=== PATIENT | female | born 1935 | race Caucasian/White ===

== ENCOUNTER 2021-05-02 13:05 | Emergency (ER) | payer MEDICARE, BC, SELFPAY ==
--- NOTE | ~2021-05-02 | CT_ITS ---
EXAMINATION: CT cervical spine wo con DATE: 05/02/2021 13:49 INDICATION: Fall with loss of consciousness and left shoulder pain TECHNIQUE: Computed tomography (CT) of the cervical spine was performed without intravenous contrast. Automated exposure control and iterative reconstruction technique were employed. The dose-length pro duct was 513.36 mGy-cm. COMPARISON: None FINDINGS: 2 mm retrolisthesis C4 on C5 and 2 mm anterolisthesis C7 on T1 and T1 on T2. Vertebral body heights a re normal. No fracture. Severe disc height loss at T1-T2. Moderate disc height loss at C4-C5 through C7-T1 as well as at T2-T3 and mild disc height loss at C2-C3 and C3-C4. Small disc bulges and small p osterior disc osteophyte complexes throughout the cervical spinal resulting in minimal to mild centra l canal stenosis. There is also mild to moderate multilevel bilateral neural foraminal stenosis throu ghout the cervical spine most prominent in the mid cervical spine resulting from multilevel moderate to severe facet and uncovertebral osteoarthritis. Multinodular goiter. Mild atherosclerotic calcific a cyst at the bilateral carotid bulbs. Cervical soft tissues are otherwise unremarkable. Mosaic atten uation likely related to expiratory phase of imaging with small regions of air trapping related to sm all airway disease. IMPRESSION: 1. Moderate to severe cervical spondylosis with no acute osseous abnormality. 2. Multinodular goiter. Reviewed, dictated and finalized at location A.
--- NOTE | ~2021-05-02 | CT_ITS ---
EXAMINATION: CT brain wo con DATE: 05/02/2021 13:49 INDICATION: Headache post fall with loss of consciousness. TECHNIQUE: Computed tomography (CT) of the head was performed without intravenous contrast. Sagittal and coronal reconstructions were performed. The mA was adjusted according to patient size. Iterative reconstruction technique was employed. The dose-length product was 605.33 mGy-cm. COMPARISON: None FINDINGS: No fracture. No acute intracranial hemorrhage, acute infarction or abnormal extra axial fluid collect ion. There is moderate scattered white matter hypoattenuation consistent with chronic small vessel is chemic disease. Symmetric prominence of the sulci and ventricles consistent with moderate age-appropr iate diffuse cerebral volume loss. No mass/mass effect. Changes of bilateral intraocular lens replace ment. The orbits, paranasal sinuses and mastoid air cells are normal. Intracranial calcified cerebral atherosclerosis is noted. IMPRESSION: 1. No fracture or acute intracranial process. 2. Age-related changes including moderate diffuse volume loss and moderate scattered white matter hyp oattenuation consistent with chronic small vessel ischemic disease. Reviewed, dictated and finalized at location A. IMPRESSION: 1. No fracture or acute intracranial process. 2. Age-related changes including moderate diffuse volume loss and moderate scat tered white matter hypoattenuation consistent with chronic small vessel ischemi c disease.
--- NOTE | ~2021-05-02 | XR_ITS ---
EXAMINATION: XR humerus LT DATE: 05/02/2021 13:36 INDICATION: Proximal left humeral pain and limited range of motion post fall TECHNIQUE: Internal and externally rotated views of the left humerus were obtained. COMPARISON: None. FINDINGS: Comminuted intra-articular fracture at the proximal left humerus. There is 6 mm lateral displacement and 25 degrees posterior angulation across a fracture plane arising at the medial cortex at the metad iaphyseal region extending cephalad likely along the anatomic neck there are couple additional fractu re planes extending across the base of the greater tuberosity and cephalad to the apex of the humeral head. The lateral fragment of the humeral head along the main distal fragment both migrated proximal ly resulting in approximately 7 mm step-off at the articular surface with respect to the medial humer al head fragment which remains in normal alignment with respect to the glenoid. Mild to moderate left acromioclavicular osteoarthritis. Left elbow joint appears unremarkable. Prominent soft tissue swell ing about the shoulder and proximal upper arm. Visualized portions of the superolateral aspect of the left lung appears clear. No pneumothorax. IMPRESSION: 1. Comminuted 1 part fracture of the proximal left humerus with 7 mm step-off at the fracture line at the apex of the humeral head. Reviewed, dictated and finalized at location A. IMPRESSION: 1. Comminuted 1 part fracture of the proximal left humerus with 7 mm step-off a t the fracture line at the apex of the humeral head.
[2021-05-02 13:09] VITALS: BP 140/83; PULSE 89; RESP 14; TEMP 36.7; O2SAT 95
--- NOTE | 2021-05-02 13:26 | ED.FALL ---
HPI - Fall General Chief Complaint: Fall Stated Complaint: fall, arm fx Time Seen by Provider: 05/02/21 13:16 History of Present Illness HPI Narrative: Patient presents for fall. She does not member what happened I think she rolled out she thinks she lost consciousness. She reports she initially had a headache that has now resolved. She was seen by her nursing staff had x-rays and was found to have a fracture in the left humerus and was referred to the ER for evaluation. Patient reports overall she is feeling well she reports she has no pain unless he tried to move her her pain is located around her left shoulder. She denies any headache, change in vision, focal numbness or weakness. Related Data Allergies Allergy/AdvReac Type Severity Reaction Status Date / Time No Known Allergies Allergy Verified 05/02/21 13:14 Review of Systems Review of Systems: CONSTITUTIONAL: Denies fever, chills, or sweats. EYES: Denies visual changes, redness, or discharge. ENT: Denies rhinorrhea, congestion, sore throat, or otalgia. CARDIOVASCULAR: Denies chest pain, palpitations, or edema. RESPIRATORY: Denies cough or dyspnea. GASTROINTESTINAL: Denies abdominal pain, nausea, vomiting, or diarrhea. GENITOURINARY: Denies dysuria or hematuria. SKIN: Denies rash or itching. MUSCULOSKELETAL: Denies back pain, joint pain, or myalgia. NEUROLOGIC: Denies headache, numbness, dizziness, or weakness. PSYCHIATRIC: Denies anxiety or depression. All systems reviewed & are unremarkable except as noted in HPI and below Exam Narrative: GENERAL: Well-appearing, well-nourished, and in no acute distress. HEAD: Normocephalic, atraumatic. EYES: PERRLA and EOMI. ENT: Nares clear, no rhinorrhea or epistaxis. Mucous membranes moist. NECK: Supple. No masses. No JVD ABDOMEN: Soft, nontender, nondistended, normal active bowel sounds. EXTREMITIES: Tenderness palpation on the proximal humerus there is limited range of motion due to pain at the shoulder. Strength sensation and cap refill remain intact distal aspect of the left upper extremity. No open wounds on the left upper extremity SKIN: Warm, dry, no rash. NEURO: No focal deficits. Alert and oriented x3. PSYCH: Normal mood and affect. Course Reevaluation(s) Reevaluation #1: Patient is resting comfortably her pain continues to be well controlled without any medications. Was imaging and outpatient plan reviewed with patient. Patient is comfortable with the outpatient plan. Patient to contact orthopedics tomorrow morning to set up a follow-up appointment. Date: 05/02/21 Time: 14:48 Vital Signs Vital signs: Vital Signs Temperature 36.7 C 05/02/21 13:09 Pulse Rate 89 05/02/21 13:09 Respiratory Rate 14 05/02/21 13:09 Blood Pressure 140/83 05/02/21 13:09 Pulse Oximetry 95 05/02/21 13:09 Temperature 36.7 C 05/02/21 13:09 Pulse Rate 100 05/02/21 18:12 Respiratory Rate 18 05/02/21 18:12 Blood Pressure 165/86 H 05/02/21 18:12 Pulse Oximetry 96 05/02/21 18:12 MDM - Fall MDM Narrative Medical decision making narrative: H&P as above, vss, pt looks clinically well, exam with tenderness on the left upper extremity distal extremity remains neurovascularly intact, labs with UA concerning for infection otherwise clinically unremarkable, img with isolated fracture, EKG also shows A. fib additional labs/img considered, symptomatic relief available as needed, on reevaluation pt continues to looks clinically well. Suspect mechanical event with isolated fracture, dns intracranial hemorrhage, cord compromise severe sepsis. Patient was placed in a shoulder immobilizer and given contact information to follow-up with orthopedics. Patient has not carried a prior diagnosis of atrial fibrillation however given patient is a fall risk we will not initiate anticoagulation here patient given contact information for cardiology and is to follow-up as an outpatient for further management. Lab Data Result diagra
--- NOTE | 2021-05-02 13:30 | ECG_ITS ---
Measurements Intervals [place] Rate: 80 P: [place]: 0 QRS: 56 QRSD: 106 T: 26 QT: 342 QTc: 395 Interpretive Statements ATRIAL FIBRILLATION VENTRICULAR PREMATURE COMPLEX DELAYED PRECORDIAL R/S TRANSITION MINIMAL Q WAVES- INFERIOR LEADS BASELINE ARTIFACT- II, III, AVF ABNORMAL ECG Electronically Signed On 05-02-2021 20:01:51 CDT by Foster Peralta D.O.
[2021-05-02 14:25] LABS: Basophils Percent Auto 0.6 % (0.2-1.2); Eosinophils Absolute Auto 0.2 K/mm3 (0-0.3); Eosinophils Percent Auto 3.3 % (0-4.4); Hematocrit 38.1 % (37.0-47.0); Hemoglobin 12.6 g/dL (12.0-15.0); Immature Granulocyte Absolute 0.01 K/mm3 (0.00-0.031); Immature Granulocyte Percent A 0.1 % (0-0.5); Lymphocytes Absolute Auto 1.75 K/mm3 (0.9-3.2); Lymphocytes Percent Auto 24.4 % (18.3-44.2); Mean Corpuscular HGB Conc 33.1 g/dl (32-36); Mean Corpuscular Hemoglobin 29.2 pg (26-34); Mean Corpuscular Volume 88.2 fl (80-100); Monocytes Absolute Auto 0.9 K/mm3 (0.1-0.6); Neutrophils Absolute Auto 4.3 K/mm3 (1.3-6.7); Neutrophils Percent Auto 59.6 % (45.5-73.1); Platelet Count Result 147 k/mm3 (150-375); Red Blood Count 4.32 M/mm3 (4.2-5.4); Red Cell Distribution Width 15.5 % (11.5-14.5); White Blood Count 7.2 K/mm3 (4.5-10.0)
[2021-05-02 14:34] LABS: Prothrombin Time 13.4 Seconds (11.1-14.7)
[2021-05-02 14:35] LABS: Alanine Aminotransferase 17 U/L (4-35); Albumin Level 3.2 g/dL (3.5-5.1); Alkaline Phosphatase 63 U/L (38-126); Anion Gap 3 mmol/L (8-16); Aspartate Amino Transferase 26 U/L (14-36); Bilirubin,Total 0.7 mg/dL (0.2-1.3); Blood Urea Nitrogen 14 mg/dL (7-17); Calcium 8.9 mg/dL (8.4-10.2); Carbon Dioxide 31 mmol/L (22-30); Chloride 97 mmol/L (98-107); Estimated Glomerular Filt Rate > 60; Glucose 122 mg/dL (65-110); Partial Thromboplastin Time 31.1 SECONDS (22.3-36.8); Sodium 131 mmol/L (137-145)
--- NOTE | 2021-05-02 15:19 | PC.NURSE ---
Spoke with nurse at [facility]. They dont have a history of afib on file for her. EDP notified.
[2021-05-02 17:11] LABS: Add Urine Microscopic? YES; Appearance Urine Cloudy (Clear); Bilirubin Urine Negative (Negative); Blood Urine Negative (Negative); Color Urine Amber (Yellow); Glucose Urine UA Negative (Negative); Ketones Urine Negative (Negative); Leukocyte Esterase Ur Negative LEU/UL (Negative); Mucus Urine Few /lpf; Nitrate Urine Negative (Negative); Protein Urine 1+ mg/dL (Negative); RBC Urine >75 /hpf (0-2); Specific Grav Ur 1.024 (1.001-1.035); Squamous Epithelial Cell Urine Many /hpf (Few); Urobilinogen Urine Negative mg/dL (<2.0)
[2021-05-02 18:12] VITALS: BP 165/86; PULSE 100; RESP 18; O2SAT 96
--- NOTE | 2021-05-02 18:19 | PC.NURSE ---
made contact with [facility] to [facility] [place]. [facility] [address] and will be taking pt alessandra
== END 2021-05-02 18:50 ==
PROVIDERS: Emergency Provider Emergency Medicine
DX: S42.292A Other displaced fracture of upper end of left humerus, initial encounter for closed fracture (principal); S42.252A Displaced fracture of greater tuberosity of left humerus, initial encounter for closed fracture; N39.0 Urinary tract infection, site not specified; I48.91 Unspecified atrial fibrillation; I49.3 Ventricular premature depolarization; R94.31 Abnormal electrocardiogram [ECG] [EKG]; M47.812 Spondylosis without myelopathy or radiculopathy, cervical region; E04.2 Nontoxic multinodular goiter; W06.XXXA Fall from bed, initial encounter
CPT/HCPCS: 36415; 51701; 70450; 72125; 73060; 80053; 81001; 84443; 85025; 85610; 85730; 87086; 87088; 93005; 99284; A4565

== ENCOUNTER 2022-08-18 23:32 | Emergency (ER) | payer MEDICARE, BC, SELFPAY ==
--- NOTE | ~2022-08-18 | XR_ITS ---
EXAMINATION: XR chest 1V portable DATE: 08/19/2022 00:07 INDICATION: Hypoxia. TECHNIQUE: A single frontal view of the chest was obtained. COMPARISON: Left shoulder radiographs 06/17/2021 FINDINGS: There is a diffuse interstitial pattern, consistent with mild pulmonary edema. No pleural e ffusion or pneumothorax. Cardiomegaly is noted. There is an old fracture of proximal left humerus wit h malunion. IMPRESSION: 1. Mild pulmonary edema. 2. Cardiomegaly. Reviewed, dictated and finalized at location A. L SORTER
--- NOTE | ~2022-08-18 | CT_ITS ---
CT head without contrast Indication: Altered mental status COMPARISON: 05/02/2021 Technique: Serial scans were obtained through the brain without the administration of contrast. Dose reduction technique was used on this scan by utilizing automated exposure control and iterative recon struction technique. The dose-length product (DLP) was 681.00 mGy-cm. Findings: There is no evidence of intracranial hemorrhage, mass lesion, or acute infarct. The ventri cles and subarachnoid spaces are dilated, consistent with mild atrophy. Low attenuation regions are seen within the periventricular white matter bilaterally, likely representing changes from chronic mi crovascular ischemic disease. There is no evidence of edema, mass effect or midline shift. The visu alized paranasal sinuses and mastoid air cells are clear. Impression: No intracranial hemorrhage, mass, or acute infarct. Atrophy and chronic white matter changes, as above. Reviewed, dictated and finalized at location [] [facility] Impression: No intracranial hemorrhage, mass, or acute infarct. Atrophy and chronic white matter changes, as above.
[2022-08-18 23:52] VITALS: BP 152/97; PULSE 80; RESP 18; TEMP 36.6; O2SAT 97
--- NOTE | 2022-08-18 23:54 | ED.SOB ---
HPI - SOB/Dyspnea General Chief Complaint: Altered Mental Status Stated Complaint: altered loc Time Seen by Provider: 08/18/22 23:40 Source: EMS Mode of arrival: EMS Limitations: dementia History of Present Illness HPI Narrative: Patient is a 86-year-old female with a history of hypertension, hyperlipidemia, iron deficiency anemia, dementia, peripheral vascular disease, presenting to the emergency department for evaluation of tremor-like activity and low oxygen saturations at facility. Patient transported via EMS from [facility] as noted to have oxygen saturation of 74% on room air by staff. Patient was placed on 8 L oxygen via nasal cannula with improvement and EMS was contacted. Patient was transported to our facility alert and oriented to person, place, not to time. Staff felt that she was mentating at baseline and had improvement with the nasal cannula oxygenation. Per EMS, she was stable in route and not hypoxic. At the time of my assessment, patient is alert and oriented to person and place, not to time. History is limited secondary to her dementia which is a known diagnosis for her. All of history was obtained from direct conversation with EMS and per chart review. Related Data Home Medications Medication Instructions Recorded Confirmed acetaminophen 500 mg tablet 500 mg PO Q6H PRN 05/07/21 06/17/21 alendronate 70 mg tablet 70 mg PO WEEKLY 05/07/21 06/17/21 aspirin 81 mg chewable tablet 81 mg PO DAILY 05/07/21 06/17/21 atorvastatin 20 mg tablet 20 mg PO DAILY 05/07/21 06/17/21 calcium 650 mg-vitamin D3 12.5 tablet PO .once a day 05/07/21 06/17/21 mcg-vitamin K 40 mcg chewable tablet (Viactiv) celecoxib 200 mg capsule (Celebrex) 200 mg PO DAILY 05/07/21 06/17/21 cephalexin 500 mg capsule 500 mg PO Q12H 05/07/21 06/17/21 cholecalciferol (vitamin D3) 10 10 mcg PO DAILY 05/07/21 06/17/21 mcg (400 unit) tablet citalopram 10 mg tablet 10 mg PO DAILY 05/07/21 06/17/21 docusate sodium 100 mg tablet 100 mg PO DAILY 05/07/21 06/17/21 ertapenem 1 gram solution for 1 g IM DAILY 05/07/21 06/17/21 injection ertapenem 1 gram solution for 1 g IM Q24H 05/07/21 06/17/21 injection furosemide 20 mg tablet 20 mg PO ONCE 05/07/21 06/17/21 gabapentin 100 mg capsule 100 mg PO DAILY 05/07/21 06/17/21 gabapentin 600 mg tablet 600 mg PO DAILY 05/07/21 06/17/21 ipratropium bromide 0.02 % 2.5 ml inhalation Q6H PRN 05/07/21 06/17/21 solution for inhalation losartan 100 mg tablet 100 mg PO DAILY 05/07/21 06/17/21 magnesium 250 mg tablet 250 mg PO DAILY 05/07/21 06/17/21 magnesium hydroxide 400 mg/5 mL 5 ml PO DAILY PRN 05/07/21 06/17/21 oral suspension melatonin 5 mg capsule mg PO .at bedtime PRN 05/07/21 06/17/21 multivitamin 1 tablet PO DAILY 05/07/21 06/17/21 polysaccharide iron complex 150 mg 150 mg PO BID 05/07/21 06/17/21 iron capsule ropinirole 1 mg tablet 1 mg PO TID 05/07/21 06/17/21 sodium chloride 1 gram tablet 1,000 mg PO DAILY 05/07/21 06/17/21 tizanidine 2 mg capsule 2 mg PO TID PRN 05/07/21 06/17/21 calcium 650 mg-vitamin D3 12.5 tablet PO PRN 06/04/21 06/17/21 mcg-vitamin K 40 mcg chewable tablet (Viactiv) cholecalciferol (vitamin D3) 10 10 mcg PO DAILY 06/04/21 06/17/21 mcg (400 unit) capsule lidocaine 5 % topical patch 1 patch topical DAILY 06/04/21 06/17/21 magnesium hydroxide 400 mg/5 mL 5 ml PO DAILY PRN 06/04/21 06/17/21 oral suspension (Milk of Magnesia) Allergies Allergy/AdvReac Type Severity Reaction Status Date / Time No Known Allergies Allergy Verified 06/17/21 10:33 Review of Systems Review of Systems: ROS unobtainable: Yes unobtainable due to mental status PMFSH Past Medical History Medical History (Updated 08/19/22 @ 04:32 by Gypsy Hunt MD) Anxiety disorder, unspecified Bilateral primary osteoarthritis of knee Constipation, unspecified Edema, unspecified High blood pressure Hyperlipidemia, unspecified Hypo-osmolality and hyponatremia Insomnia, unspecified Iron de
[2022-08-19 00:13] LABS: Alveolar/Arterial O2 Gradient 31.5 mmHg; Base Excess ABG 2.4 mEq/l (+/-2.0); Device ROOM AIR; Fractional Inspired Oxygen 21 %; HCO3 ABG 27.1 mEq/l (22.0-26.0); Modified Allen's Test Pass; Oxygen Content ABG 21.5 %vol (16.0-22.0); Oxygen Saturation ABG 94.1 % (95.0-100.0); Oxyhemoglobin 92.3 % THb (90.0-100.0); PCO2 ABG 41.8 mmHg (35.0-45.0); PO2 ABG 68.2 mmHg (80.0-100.0); PO2 FiO2 Ratio Arterial Blood 3.25 %; Site Drawn RIGHT RADIAL; Total Hemoglobin 16.6 g/dL (12.0-18.0); pH ABG 7.429 (7.350-7.450)
[2022-08-19 00:18] LABS: Basophils Percent Auto 0.3 % (0.2-1.2); Eosinophils Percent Auto 0.1 % (0-4.4); Hematocrit 45.7 % (37.0-47.0); Hemoglobin 15.5 g/dL (12.0-15.0); Immature Granulocyte Absolute 0.04 K/mm3 (0.00-0.031); Immature Granulocyte Percent A 0.4 % (0-0.5); Lymphocytes Absolute Auto 1.82 K/mm3 (0.9-3.2); Lymphocytes Percent Auto 18.3 % (18.3-44.2); Mean Corpuscular HGB Conc 33.9 g/dl (32-36); Mean Corpuscular Hemoglobin 31.4 pg (26-34); Mean Corpuscular Volume 92.5 fl (80-100); Mean Platelet Volume 9.2 fl (7.4-10.4); Monocytes Absolute Auto 0.6 K/mm3 (0.1-0.6); Monocytes Percent Auto 6.4 % (2.6-8.5); Neutrophils Absolute Auto 7.4 K/mm3 (1.3-6.7); Neutrophils Percent Auto 74.5 % (45.5-73.1); Platelet Count Result 211 k/mm3 (150-375); Red Blood Count 4.94 M/mm3 (4.2-5.4); Red Cell Distribution Width 14.2 % (11.5-14.5)
[2022-08-19 00:27] LABS: Ammonia < 9 umol/L (9-30); Ethanol < 10 mg/dL (<10)
[2022-08-19 00:30] LABS: Lactic Acid Reflex 1.3 mmol/L (0.7-2.0)
[2022-08-19 00:31] LABS: Alanine Aminotransferase 18 U/L (6-35); Albumin Level 4.3 g/dL (3.5-5.1); Alkaline Phosphatase 76 U/L (38-126); Anion Gap 6 mmol/L (8-16); Aspartate Amino Transferase 31 U/L (14-36); Bilirubin,Total 0.7 mg/dL (0.2-1.3); Blood Urea Nitrogen 16 mg/dL (7-17); Calcium 9.2 mg/dL (8.4-10.2); Carbon Dioxide 31 mmol/L (22-30); Chloride 91 mmol/L (98-107); Estimated Glomerular Filt Rate 47; Glucose 129 mg/dL (65-110); Potassium 3.6 mmol/L (3.4-5.0); Sodium 128 mmol/L (137-145)
[2022-08-19 00:32] LABS: Partial Thromboplastin Time 29.9 SECONDS (22.3-36.8)
[2022-08-19 00:43] LABS: Troponin I 0.017 ng/mL (0.000-0.034)
[2022-08-19 01:48] LABS: Influenza A QL RT-PCR Negative (Negative); Influenza B QL RT-PCR Negative (Negative); RSV RNA, RT-PCR Negative (Negative); SARS-CoV-2 RNA PCR Negative
--- NOTE | 2022-08-19 02:02 | ECG_ITS ---
Measurements Intervals [place] Rate: 91 P: [place]: 0 QRS: 58 QRSD: 110 T: -39 QT: 364 QTc: 448 Interpretive Statements BASELINE ARTIFACT/REDUCED ECG QUALITY ATRIAL FIBRILLATION POOR R-WAVE PROGRESSION COMPARED TO ECG 05/02/2021 15:03:48 NO SIGNIFICANT CHANGES Electronically Signed On 08-19-2022 10:18:59 [employer]ATING [employer]ILITY TECHNOLOGIST by Víctor Reno M.D.
[2022-08-19 02:51] LABS: Add Urine Microscopic? YES; Appearance Urine Clear (Clear); Bilirubin Urine Negative (Negative); Blood Urine Trace-Intact (Negative); Color Urine Yellow (Yellow); Glucose Urine UA Negative (Negative); Ketones Urine Trace mg/dL (Negative); Leukocyte Esterase Ur Trace LEU/UL (Negative); Nitrate Urine Positive (Negative); Protein Urine 2+ mg/dL (Negative); Specific Grav Ur 1.025 (1.001-1.035); Urobilinogen Urine 0.2 mg/dL (<2.0)
[2022-08-19 03:07] LABS: Bacteria Urine 4+ /hpf; Mucus Urine Rare /lpf; Squamous Epithelial Cell Urine Rare /hpf (Few); WBC Urine 31-50 /hpf
[2022-08-19 05:29] LABS: Troponin I 0.022 ng/mL (0.000-0.034)
[2022-08-19] MEDS: SODIUM CHLORIDE 0.9% IV 1,000 ML 999 ML IV CONT (05:38)
[2022-08-19 06:58] LABS: Troponin I 0.021 ng/mL (0.000-0.034)
[2022-08-19 08:05] VITALS: BP 161/95; PULSE 67; RESP 16; O2SAT 98
--- NOTE | 2022-08-19 08:05 | PC.NURSE ---
[facility] Accepted transfer to [facility] ETA 10a Trip # [id number]
[2022-08-19 10:38] VITALS: BP 182/89; PULSE 91; RESP 16; O2SAT 95
== END 2022-08-19 10:51 ==
PROVIDERS: Emergency Provider Emergency Medicine; PCP Family Medicine
DX: N39.0 Urinary tract infection, site not specified (principal); Z20.822 Contact with and (suspected) exposure to COVID-19; I10 Essential (primary) hypertension; E78.5 Hyperlipidemia, unspecified; F03.90 Unspecified dementia, unspecified severity, without behavioral disturbance, psychotic disturbance, mood disturbance, and anxiety; D50.9 Iron deficiency anemia, unspecified; I73.9 Peripheral vascular disease, unspecified; M17.0 Bilateral primary osteoarthritis of knee; G25.81 Restless legs syndrome; F41.9 Anxiety disorder, unspecified; Z79.82 Long term (current) use of aspirin; Z87.891 Personal history of nicotine dependence; I48.91 Unspecified atrial fibrillation; R94.31 Abnormal electrocardiogram [ECG] [EKG]; I51.7 Cardiomegaly; J81.1 Chronic pulmonary edema; Z79.899 Other long term (current) drug therapy
CPT/HCPCS: 36415; 36600; 70450; 71045; 80053; 80307; 81001; 82140; 82805; 83605; 84443; 84484; 85025; 85610; 85730; 87077; 87086; 87186; 87637; 93005; 96361; 96365; 99284; J0696; J7030

== ENCOUNTER 2023-03-19 21:32 | Emergency (ER) | payer MEDICARE, BC, SELFPAY ==
[2023-03-19 21:32] VITALS: BP 127/81; PULSE 97; RESP 18; TEMP 36.9; O2SAT 96
--- NOTE | 2023-03-19 22:17 | ED.GENADULT ---
HPI - General Adult General Chief complaint: Unspecified Stated complaint: needs ogden Time Seen by Provider: 03/19/23 21:54 History of Present Illness HPI narrative: There is 87-year-old female who presents to Emergency Department with a chief complaint of possible urinary retention. The patient is was a resident of a local nursing facility and the nurse there felt as though her bladder was full and she had not urinated in several hours patient reports she has no complaints currently Related Data Home Medications Medication Instructions Recorded Confirmed acetaminophen 500 mg tablet 500 mg PO Q6H PRN 05/07/21 03/17/23 alendronate 70 mg tablet 70 mg PO WEEKLY 05/07/21 03/17/23 aspirin 81 mg chewable tablet 81 mg PO DAILY 05/07/21 03/17/23 atorvastatin 20 mg tablet 20 mg PO DAILY 05/07/21 03/17/23 calcium 650 mg-vitamin D3 12.5 tablet PO .once a day 05/07/21 03/17/23 mcg-vitamin K 40 mcg chewable tablet (Viactiv) celecoxib 200 mg capsule (Celebrex) 200 mg PO DAILY 05/07/21 03/17/23 cholecalciferol (vitamin D3) 10 10 mcg PO DAILY 05/07/21 03/17/23 mcg (400 unit) tablet citalopram 10 mg tablet 10 mg PO DAILY 05/07/21 03/17/23 docusate sodium 100 mg tablet 100 mg PO DAILY 05/07/21 03/17/23 furosemide 20 mg tablet 20 mg PO ONCE 05/07/21 03/17/23 gabapentin 100 mg capsule 100 mg PO DAILY 05/07/21 03/17/23 gabapentin 600 mg tablet 600 mg PO DAILY 05/07/21 03/17/23 losartan 100 mg tablet 100 mg PO DAILY 05/07/21 03/17/23 magnesium 250 mg tablet 250 mg PO DAILY 05/07/21 03/17/23 melatonin 5 mg capsule mg PO .at bedtime PRN 05/07/21 03/17/23 multivitamin 1 tablet PO DAILY 05/07/21 03/17/23 polysaccharide iron complex 150 mg 150 mg PO BID 05/07/21 03/17/23 iron capsule ropinirole 1 mg tablet 1 mg PO TID 05/07/21 03/17/23 sodium chloride 1 gram tablet 1,000 mg PO DAILY 05/07/21 03/17/23 lidocaine 5 % topical patch 1 patch topical DAILY 06/04/21 03/17/23 magnesium hydroxide 400 mg/5 mL 5 ml PO DAILY PRN 06/04/21 03/17/23 oral suspension (Milk of Magnesia) cilostazol 100 mg tablet 100 mg PO BID 11/11/22 03/17/23 divalproex 125 mg tablet,delayed 125 mg PO BID 11/11/22 03/17/23 release (Depakote) Allergies Allergy/AdvReac Type Severity Reaction Status Date / Time No Known Allergies Allergy Verified 06/17/21 10:33 Review of Systems Review of Systems: A 10 system review of systems was completed on the patient and is negative except for what is stated in the HPI. Nursing and ancillary documentation was reviewed. [facility] Past Medical History Medical History Anxiety disorder, unspecified Bilateral primary osteoarthritis of knee Constipation, unspecified Edema, unspecified High blood pressure Hyperlipidemia, unspecified Hypo-osmolality and hyponatremia Insomnia, unspecified Iron deficiency anemia, unspecified Pain in left shoulder Proximal humeral fracture Restless legs syndrome Unspecified fracture of upper end of left humerus, sequela Weakness Family History Family History Other History of cancer Social History Social History Smoking status: Former smoker Tobacco type: cigarettes Alcohol intake: current Alcohol use details: occasionally Substance use: never Living arrangements: alf Additional living arrangements comments: [facility] Occupation/Education: retired Gender identity (if verbalized by the patient): Female Exam Narrative: GENERAL: Well-appearing, well-nourished, and in no acute distress. HEAD: Normocephalic, atraumatic. EYES: PERRLA and EOMI. ENT: Nares clear, no rhinorrhea or epistaxis. Mucous membranes moist. NECK: Supple. CHEST: Clear to auscultation. No respiratory distress. HEART: Regular rate and rhythm. No murmur heard. Normal peripheral pulses. ABDOMEN: Soft
--- NOTE | 2023-03-19 23:10 | PC.NURSE ---
Pt voided in bed, pt repositioned and bed linens changed. Bladder scan after void was 112
[2023-03-19 23:59] VITALS: BP 168/103; PULSE 86; RESP 16; O2SAT 96
[2023-03-20 00:08] VITALS: BP 158/96
--- NOTE | 2023-03-20 00:51 | PC.NURSE ---
EMS arrived to transport pt, bedside report given. Pt alert and upright per baseline during transport out of ED.
== END 2023-03-20 00:51 ==
PROVIDERS: Emergency Provider Emergency Medicine; PCP Family Medicine
DX: Z03.89 Encounter for observation for other suspected diseases and conditions ruled out (principal); I10 Essential (primary) hypertension; E78.5 Hyperlipidemia, unspecified; D50.9 Iron deficiency anemia, unspecified; M17.0 Bilateral primary osteoarthritis of knee; G25.81 Restless legs syndrome; F41.9 Anxiety disorder, unspecified; Z87.891 Personal history of nicotine dependence; Z79.82 Long term (current) use of aspirin
CPT/HCPCS: 99283

== ENCOUNTER 2023-03-29 11:41 | Inpatient (IN) | payer MEDICARE, BC, SELFPAY ==
[2023-03-29] VITALS (14 sets, daily range): BP systolic 101–152; BP diastolic 62–103; PULSE 72–94; RESP 12–24; TEMP 36.3–36.8; O2SAT 94–100; BMI 30.1
--- NOTE | ~2023-03-29 | XR_ITS ---
XR chest 1V portable 03/29/2023 14:26 Indication: Altered mental status Procedure: AP portable chest Comparison: 08/19/2022 Findings: Cardiomegaly. No focal air space disease, pulmonary edema, pleural effusion or suspected pn eumothorax. There is an old healed left humeral neck fracture. There are degenerative changes of the right shoulder. Impression: 1: No acute cardiopulmonary disease. Reviewed, dictated and finalized at location A. Impression: 1: No acute cardiopulmonary disease.
--- NOTE | ~2023-03-29 | CT_ITS ---
EXAMINATION: CT brain wo con DATE: 03/29/2023 14:20 INDICATION: Altered mental status TECHNIQUE: Computed tomography (CT) of the head was performed without intravenous contrast. The dose- length product was 605.33 mGy-cm. Automated exposure control and iterative reconstruction technique w ere employed. COMPARISON: CT dated 08/19/2022 FINDINGS: Generalized brain parenchymal volume loss. There are scattered moderate periventricular and subcortical white matter changes, most likely related to small vessel ischemic disease (microangiopa thy). No ventriculomegaly or midline shift. Basilar cisterns are patent. There is intracranial athero sclerosis. No acute intracranial hemorrhage, infarction, mass or mass effect. Paranasal sinuses and m astoids are pneumatized. No depressed skull fractures. IMPRESSION: 1. No acute intracranial abnormality. Reviewed, dictated and finalized at location A.
--- NOTE | 2023-03-29 11:50 | ECG_ITS ---
Measurements Intervals [place] Rate: 70 P: [place]: 0 QRS: 28 QRSD: 106 T: 4 QT: 360 QTc: 390 Interpretive Statements ATRIAL FIBRILLATION CONSIDER INFERIOR INFARCT, AGE INDETERMINATE BASELINE ARTIFACT- I, II, AVR, AVL, V3 ABNORMAL ECG COMPARED TO ECG 08/19/2022 02:02:32 NO SIGNIFICANT CHANGES Electronically Signed On 03-29-2023 12:04:03 CDT by Foster Peralta D.O.
[2023-03-29 12:06] LABS: Basophils Percent Auto 0.6 % (0.2-1.2); Eosinophils Absolute Auto 0.4 K/mm3 (0-0.3); Eosinophils Percent Auto 6.1 % (0-4.4); Hemoglobin 13.3 g/dL (12.0-15.0); Immature Granulocyte Absolute 0.01 K/mm3 (0.00-0.031); Immature Granulocyte Percent A 0.2 % (0-0.5); Lymphocytes Absolute Auto 2.08 K/mm3 (0.9-3.2); Lymphocytes Percent Auto 31.7 % (18.3-44.2); Mean Corpuscular HGB Conc 33.3 g/dl (32-36); Mean Corpuscular Hemoglobin 31.7 pg (26-34); Mean Corpuscular Volume 95.5 fl (80-100); Mean Platelet Volume 9.4 fl (7.4-10.4); Monocytes Absolute Auto 0.7 K/mm3 (0.1-0.6); Monocytes Percent Auto 10.4 % (2.6-8.5); Neutrophils Absolute Auto 3.4 K/mm3 (1.3-6.7); Platelet Count Result 164 k/mm3 (150-375); Red Blood Count 4.19 M/mm3 (4.2-5.4); Red Cell Distribution Width 13.6 % (11.5-14.5); White Blood Count 6.6 K/mm3 (4.5-10.0)
[2023-03-29 12:16] LABS: Alanine Aminotransferase 21 U/L (6-35); Albumin Level 3.6 g/dL (3.5-5.1); Alkaline Phosphatase 63 U/L (38-126); Anion Gap 5 mmol/L (8-16); Aspartate Amino Transferase 27 U/L (14-36); Bilirubin,Total 0.6 mg/dL (0.2-1.3); Blood Urea Nitrogen 16 mg/dL (7-17); Calcium 9.1 mg/dL (8.4-10.2); Carbon Dioxide 30 mmol/L (22-30); Chloride 92 mmol/L (98-107); Estimated CRCL calculation 61 ml/min; Estimated Glomerular Filt Rate > 60; Glucose 93 mg/dL (65-110); Potassium 4.4 mmol/L (3.4-5.0); Sodium 127 mmol/L (137-145)
[2023-03-29 12:22] LABS: Appearance Urine Cloudy (Clear); Bacteria Urine 4+ /hpf; Bilirubin Urine Negative (Negative); Blood Urine Negative (Negative); Color Urine Yellow (Yellow); Glucose Urine UA Negative (Negative); Ketones Urine Negative (Negative); Leukocyte Esterase Ur 1+ LEU/UL (Negative); Nitrate Urine Positive (Negative); Non Pathogenic Casts 0-2; Protein Urine Negative (Negative); Specific Grav Ur 1.014 (1.001-1.035); Squamous Epithelial Cell Urine None seen /hpf (Few)
[2023-03-29 12:28] LABS: Add Urine Microscopic? YES
[2023-03-29 12:49] LABS: INR 0.8; Prothrombin Time 11.8 Seconds (11.1-14.7)
[2023-03-29 12:50] LABS: Partial Thromboplastin Time 29.5 SECONDS (22.3-36.8)
--- NOTE | 2023-03-29 13:59 | ED.AMS ---
HPI - Altered Mental Status General Chief Complaint: Altered Mental Status Stated Complaint: UTI Time Seen by Provider: 03/29/23 13:13 History of Present Illness HPI narrative: HPI limited by patient's altered mental status This is an 87-year-old female, with past medical history of hyperlipidemia and hypertension, [facility] for [facility] status. The patient is reportedly A&O x2-3 at baseline and was 1-2 today. The patient is not sure why she is here and complains of chronic right knee and hip pain. Related Data Home Medications Medication Instructions Recorded Confirmed acetaminophen 500 mg tablet 500 mg PO Q6H PRN pain 05/07/21 03/29/23 alendronate 70 mg tablet 70 mg PO WEEKLY 05/07/21 03/29/23 aspirin 81 mg chewable tablet 81 mg PO DAILY 05/07/21 03/29/23 atorvastatin 20 mg tablet 20 mg PO DAILY 05/07/21 03/29/23 celecoxib 200 mg capsule (Celebrex) 200 mg PO DAILY 05/07/21 03/29/23 cholecalciferol (vitamin D3) 10 10 mcg PO DAILY 05/07/21 03/29/23 mcg (400 unit) tablet citalopram 10 mg tablet 10 mg PO DAILY 05/07/21 03/29/23 docusate sodium 100 mg tablet 100 mg PO DAILY 05/07/21 03/29/23 losartan 100 mg tablet 100 mg PO DAILY 05/07/21 03/29/23 magnesium 250 mg tablet 250 mg PO DAILY 05/07/21 03/29/23 melatonin 5 mg capsule 5 mg PO HS 05/07/21 03/29/23 multivitamin 1 tablet PO DAILY 05/07/21 03/29/23 ropinirole 1 mg tablet 1 mg PO TID 05/07/21 03/29/23 sodium chloride 1 gram tablet 1,000 mg PO DAILY 05/07/21 03/29/23 lidocaine 5 % topical patch 1 patch topical DAILY 06/04/21 03/29/23 magnesium hydroxide 400 mg/5 mL 5 ml PO DAILY 06/04/21 03/29/23 oral suspension (Milk of Magnesia) cilostazol 100 mg tablet 100 mg PO BID 11/11/22 03/29/23 divalproex 125 mg tablet,delayed 125 mg PO BID 11/11/22 03/29/23 release (Depakote) baclofen 10 mg tablet 10 mg PO TID 03/29/23 03/29/23 calcium 650 mg-vitamin D3 12.5 1 tablet PO DAILY 03/29/23 03/29/23 mcg-vitamin K 40 mcg chewable tablet (Viactiv) ferrous sulfate 325 mg (65 mg 40 mg PO DAILY 03/29/23 03/29/23 iron) tablet,delayed release gabapentin 300 mg capsule 300 mg PO BID 03/29/23 03/29/23 lactulose 20 gram/30 mL oral 20 g PO BID 03/29/23 03/29/23 solution nystatin-triamcinolone 100,000 100,000 applic topical DAILY 03/29/23 03/29/23 unit/gram-0.1 % topical ointment sennosides 8.6 mg tablet (senna) 8.6 mg PO BID 03/29/23 03/29/23 spironolactone 50 mg tablet 50 mg PO QAM 03/29/23 03/29/23 tamsulosin 0.4 mg capsule 0.4 mg PO DAILY 03/29/23 03/29/23 Allergies Allergy/AdvReac Type Severity Reaction Status Date / Time No Known Allergies Allergy Verified 06/17/21 10:33 Review of Systems Review of Systems: CONSTITUTIONAL: Denies fever, chills, or sweats. CARDIOVASCULAR: Denies chest pain, palpitations, or edema. RESPIRATORY: Denies cough or dyspnea. GASTROINTESTINAL: Denies abdominal pain, nausea, vomiting, or diarrhea. GENITOURINARY: Denies dysuria or hematuria. SKIN: Denies rash or itching. MUSCULOSKELETAL: Chronic right hip and right knee pain denies back pain, or myalgia. NEUROLOGIC: Denies headache, numbness, dizziness, or weakness. PSYCHIATRIC: Denies anxiety or depression. [facility] Past Medical History Medical History Anxiety disorder, unspecified Bilateral primary osteoarthritis of knee Constipation, unspecified Edema, unspecified High blood pressure Hyperlipidemia, unspecified Hypo-osmolality and hyponatremia Insomnia, unspecified Iron deficiency anemia, unspecified Pain in left shoulder Proximal humeral fracture Restless legs syndrome Unspecified fracture of upper end of left humerus, sequela Weakness Family History Family History (Updated 03/29/23 @ 17:34 by Xenia Olivarez RN) Father History of cancer Social History Social History Smoking packs per day: 1.5 Smoking cigarettes per day: 30.0
[2023-03-29 15:08] LABS: Ethanol < 10 mg/dL (<10)
--- NOTE | 2023-03-29 15:20 | PC.NURSE ---
Family phone call received, updated on pt status.
[2023-03-29 16:56] LABS: Amphetamine Screen Urine Negative (Negative); Barbiturate Screen Urine Negative (Negative); Benzodiazepines Screen Urine Negative (Negative); Cannabinoid Screen Urine Negative (Negative); Cocaine Screen Urine Negative (Negative); Methadone Screen Urine Negative (Negative); Opiate Screen Urine Negative (Negative); Phencyclidine Screen Urine Negative (Negative)
--- NOTE | 2023-03-29 17:10 | ADMGEN ---
This patient, Mariah Michel, was admitted to 3 Med Surg Room 304-02. Patient/family oriented to hospital policies and general routines including ID bracelet, bed and alarms, visiting hours, pain management, procedures, bathroom and other care routines, personal items, smoking policy, room service/diet, and visiting hours. Information on how to activate the Rapid Response Team has been discussed. Patient/Family are encouraged to report perceived risks to care and to ask questions if they do not understand what they are told or what they should do.
[2023-03-29 17:21] LABS: Acetaminophen < 10 ug/mL (10-30); Salicylate < 1.0 mg/dL (2-20)
[2023-03-29] MEDS: ACETAMINOPHEN 325 MG TABLET 650 MG PO (21:11)
[2023-03-30 06:00] VITALS: BP 129/84; PULSE 85; RESP 16; TEMP 36; O2SAT 96
[2023-03-30 06:42] LABS: Basophils Absolute Auto 0.1 K/mm3 (0.0-0.1); Basophils Percent Auto 0.7 % (0.2-1.2); Eosinophils Absolute Auto 0.7 K/mm3 (0-0.3); Eosinophils Percent Auto 9.3 % (0-4.4); Hematocrit 41.4 % (37.0-47.0); Immature Granulocyte Absolute 0.02 K/mm3 (0.00-0.031); Immature Granulocyte Percent A 0.3 % (0-0.5); Lymphocytes Absolute Auto 1.93 K/mm3 (0.9-3.2); Lymphocytes Percent Auto 27.7 % (18.3-44.2); Mean Corpuscular HGB Conc 33.8 g/dl (32-36); Mean Corpuscular Volume 94.7 fl (80-100); Mean Platelet Volume 9.8 fl (7.4-10.4); Monocytes Absolute Auto 0.8 K/mm3 (0.1-0.6); Monocytes Percent Auto 11.2 % (2.6-8.5); Neutrophils Absolute Auto 3.6 K/mm3 (1.3-6.7); Neutrophils Percent Auto 50.8 % (45.5-73.1); Platelet Count Result 168 k/mm3 (150-375); Red Blood Count 4.37 M/mm3 (4.2-5.4); Red Cell Distribution Width 13.6 % (11.5-14.5)
[2023-03-30 06:57] LABS: Anion Gap 4 mmol/L (8-16); Blood Urea Nitrogen 12 mg/dL (7-17); Calcium 9.2 mg/dL (8.4-10.2); Carbon Dioxide 31 mmol/L (22-30); Chloride 93 mmol/L (98-107); Estimated CRCL calculation 65 ml/min; Estimated Glomerular Filt Rate > 60; Glucose 87 mg/dL (65-110); Potassium 4.8 mmol/L (3.4-5.0); Sodium 128 mmol/L (137-145)
[2023-03-30 09:54] VITALS: O2SAT 97
--- NOTE | 2023-03-30 11:59 | PM.IMHP ---
H&P: HPI History of Present Illness Date/Time: 03/30/23 11:59 Chief Complaint: HPI limited by patient's altered mental status This is an 87-year-old female, with past medical history of hyperlipidemia and hypertension, brought in by EMS from her long term for altered mental status.? The patient is reportedly A&O x2-3 at baseline and was 1-2 today.? The patient is not sure why she is here and complains of chronic right knee and hip pain. [facility] Past Medical History Medical History Anxiety disorder, unspecified Bilateral primary osteoarthritis of knee Constipation, unspecified Edema, unspecified High blood pressure Hyperlipidemia, unspecified Hypo-osmolality and hyponatremia Insomnia, unspecified Iron deficiency anemia, unspecified Pain in left shoulder Proximal humeral fracture Restless legs syndrome Unspecified fracture of upper end of left humerus, sequela Weakness Family History Family History Father History of cancer Social History Social History Smoking packs per day: 1.5 Smoking cigarettes per day: 30.0 Years smoked: 18 Smoking pack-years: 27.00 Smoking status: Former smoker Tobacco type: cigarettes Alcohol intake: former Drinks per week: 1 Alcohol use details: occasionally Substance use: never Lack of Transportation: No Lack of Food: Never True Current Housing: I Have Housing Concerned About Future Housing: No Difficulty Paying Gas/Electric Bills: No Difficulty Paying for Meds: No Currently Unemployed: No Education: High School Diploma/GED Difficulty w/ Childcare or Family Care: No Living arrangements: long term Additional living arrangements comments: [facility] Occupation/Education: retired Gender identity (if verbalized by the patient): Female Spiritual care concerns: No Meds Home Medications and Allergies Home Medications Medication Instructions Recorded Confirmed Type acetaminophen 500 mg tablet 500 mg PO Q6H PRN pain 05/07/21 03/29/23 History alendronate 70 mg tablet 70 mg PO WEEKLY 05/07/21 03/29/23 History aspirin 81 mg chewable tablet 81 mg PO DAILY 05/07/21 03/29/23 History atorvastatin 20 mg tablet 20 mg PO DAILY 05/07/21 03/29/23 History celecoxib 200 mg capsule (Celebrex) 200 mg PO DAILY 05/07/21 03/29/23 History cholecalciferol (vitamin D3) 10 10 mcg PO DAILY 05/07/21 03/29/23 History mcg (400 unit) tablet citalopram 10 mg tablet 10 mg PO DAILY 05/07/21 03/29/23 History docusate sodium 100 mg tablet 100 mg PO DAILY 05/07/21 03/29/23 History losartan 100 mg tablet 100 mg PO DAILY 05/07/21 03/29/23 History magnesium 250 mg tablet 250 mg PO DAILY 05/07/21 03/29/23 History melatonin 5 mg capsule 5 mg PO HS 05/07/21 03/29/23 History multivitamin 1 tablet PO DAILY 05/07/21 03/29/23 History ropinirole 1 mg tablet 1 mg PO TID 05/07/21 03/29/23 History sodium chloride 1 gram tablet 1,000 mg PO DAILY 05/07/21 03/29/23 History lidocaine 5 % topical patch 1 patch topical DAILY 06/04/21 03/29/23 History magnesium hydroxide 400 mg/5 mL 5 ml PO DAILY 06/04/21 03/29/23 History oral suspension (Milk of Magnesia) cilostazol 100 mg tablet 100 mg PO BID 11/11/22 03/29/23 History divalproex 125 mg tablet,delayed 125 mg PO BID 11/11/22 03/29/23 History release (Depakote) baclofen 10 mg tablet 10 mg PO TID 03/29/23 03/29/23 History calcium 650 mg-vitamin D3 12.5 1 tablet PO DAILY 03/29/23 03/29/23 History mcg-vitamin K 40 mcg chewable tablet (Viactiv) ferrous sulfate 325 mg (65 mg 40 mg PO DAILY 03/29/23 03/29/23 History iron) tablet,delayed release gabapentin 300 mg capsule 300 mg PO BID 03/29/23 03/29/23 History lactulose 20 gram/30 mL oral 20 g PO BID 03/29/23 03/29/23 History solution nystatin-triamcinolone 100,000 100,000 applic topical DAILY 03/29/23 03/29/23 H
[2023-03-30] MEDS: SPIRONOLACTONE 50 MG TABLET PO (13:31)
[2023-03-30] MEDS: rOPINIRole HCL 1 MG TABLET PO ×2 (13:31→17:31)
[2023-03-30] MEDS: DIVALPROEX SODIUM DR 125 MG TABEC PO ×2 (13:31→20:33)
[2023-03-30] MEDS: MAGNESIUM 13.5 MG TABLET (250 MG MAG GLUCONATE) PO (13:31)
[2023-03-30] MEDS: TAMSULOSIN HCL 0.4 MG CAPSULE PO (13:32)
[2023-03-30] MEDS: GABAPENTIN 300 MG CAPSULE PO ×2 (13:32→20:34)
[2023-03-30] MEDS: BACLOFEN 10 MG TABLET PO ×2 (13:32→17:32)
[2023-03-30] MEDS: LIDOCAINE 5% PATCH 1 PATCH TOPICAL (13:32)
[2023-03-30] MEDS: MULTIVITAMINS THERAPEUTIC TAB (*BKC) 1 TABLET PO (13:32)
[2023-03-30 14:00] VITALS: BP 151/80; PULSE 81; RESP 16; TEMP 36.2; O2SAT 98
[2023-03-30] MEDS: cilostazoL 100 MG TABLET PO (17:30)
[2023-03-30] MEDS: LACTULOSE 20 GM/30 ML UDC PO (17:31)
[2023-03-30] MEDS: SENNOSIDES 8.6 MG TABLET PO (17:32)
[2023-03-30] MEDS: MELATONIN 5 MG TABLET PO (20:34)
[2023-03-30 21:46] VITALS: O2SAT 97
[2023-03-30 22:00] VITALS: BP 135/72; PULSE 76; RESP 16; TEMP 36; O2SAT 96
[2023-03-31 06:00] VITALS: BP 139/85; PULSE 73; RESP 16; TEMP 36; O2SAT 95
[2023-03-31] MEDS: rOPINIRole HCL 1 MG TABLET PO ×3 (09:02→17:49)
[2023-03-31] MEDS: MULTIVITAMINS THERAPEUTIC TAB (*BKC) 1 TABLET PO (09:02)
[2023-03-31] MEDS: CELECOXIB 200 MG CAPSULE PO (09:02)
[2023-03-31] MEDS: GABAPENTIN 300 MG CAPSULE PO ×2 (09:02→20:31)
[2023-03-31] MEDS: TAMSULOSIN HCL 0.4 MG CAPSULE PO (09:02)
[2023-03-31] MEDS: LACTULOSE 20 GM/30 ML UDC PO ×2 (09:02→17:49)
[2023-03-31] MEDS: SODIUM CHLORIDE 1 GM TABLET PO (09:02)
[2023-03-31] MEDS: CHOLECALCIFEROL 400 UNITS TABLET (VIT D) PO (09:02)
[2023-03-31] MEDS: DIVALPROEX SODIUM DR 125 MG TABEC PO ×2 (09:02→20:31)
[2023-03-31] MEDS: LOSARTAN POTASSIUM 100 MG TABLET PO (09:02)
[2023-03-31] MEDS: CITALOPRAM HYDROBROMIDE 10 MG TABLET PO (09:02)
[2023-03-31] MEDS: cilostazoL 100 MG TABLET PO ×2 (09:03→17:49)
[2023-03-31] MEDS: FERROUS SULFATE 325 MG TABLET DR PO (09:03)
[2023-03-31] MEDS: SPIRONOLACTONE 50 MG TABLET PO (09:03)
[2023-03-31] MEDS: ATORVASTATIN 20 MG TABLET PO (09:03)
[2023-03-31] MEDS: DOCUSATE SODIUM 100 MG CAPSULE PO (09:08)
[2023-03-31] MEDS: ASPIRIN 81 MG CHEWABLE TABLET PO (09:08)
[2023-03-31] MEDS: MAGNESIUM HYDROXIDE SUSP 30 ML UDC 5 ML PO (09:08)
[2023-03-31] MEDS: LIDOCAINE 5% PATCH 1 PATCH TOPICAL (09:08)
[2023-03-31] MEDS: BACLOFEN 10 MG TABLET PO ×3 (09:09→17:49)
[2023-03-31] MEDS: SENNOSIDES 8.6 MG TABLET PO ×2 (09:52→17:49)
--- NOTE | 2023-03-31 11:26 | PM.IMPN ---
Progress Note: A&P Assessment and Plan (1) Altered mental status: Qualifiers: Altered mental status type: delirium Qualified Code(s): R41.0 - Disorientation, unspecified Code(s): R41.82 - Altered mental status, unspecified Status: Acute Assessment and Plan: Appears to be at baseline. (2) Urinary tract infection, site not specified: Qualifiers: Hematuria presence: with hematuria Urinary tract infection type: acute cystitis Qualified Code(s): N30.01 - Acute cystitis with hematuria Code(s): N39.0 - Urinary tract infection, site not specified Status: Acute Assessment and Plan: Antibiotics. Subjective Date/time seen: 03/31/23 11:26 Interval history: No complaints Exam Narrative: General: alert and oriented Psych: appropriate mood nad affect Eyes: PERRLA Neck: Trachea midline, no new lesions Skin: no changes Lungs: CTA Cardiac: Normal S1,S2, no MGR ABD: soft, nd, nt, nbs Ext: no new lesions, no cce Vasc: Pulses intact Objective Data Vital Signs Vital Signs: Vital Signs - 24 hr 03/30/23 14:00 03/30/23 22:00 03/30/23 21:46 Temperature 97.1 F L 96.8 F L Pulse Rate 81 76 Respiratory Rate 16 16 Blood Pressure 151/80 H 135/72 Pulse Oximetry 98 96 97 Oxygen Delivery Room Air 03/31/23 06:00 Temperature 96.8 F L Pulse Rate 73 Respiratory Rate 16 Blood Pressure 139/85 Pulse Oximetry 95 Oxygen Delivery Intake/Output Intake/Output: Intake & Output 03/28/23 03/29/23 03/30/23 03/31/23 23:59 23:59 23:59 23:59 Intake Total 290 1790 354 Output Total 150 Balance 140 1790 354 Meds/Results Medications: Active Medications Generic Name Dose Route Start Last Admin Trade Name Freq PRN Reason Stop Dose Admin Acetaminophen 650 mg 03/29/23 15:04 03/29/23 21:11 Acetaminophen 325 Mg Tablet PO 650 mg Q4H PRN Administration Mild Pain (1-3) or Fever Alendronate Sodium 70 mg 04/06/23 09:00 Alendronate Sodium 70 Mg Tablet PO WEEKLY CHRISTEL Aspirin 81 mg 03/31/23 09:00 03/31/23 09:08 Aspirin 81 Mg Chewable Tablet PO 81 mg DAILY CHRISTEL Administration Atorvastatin Calcium 20 mg 03/31/23 09:00 03/31/23 09:03 Atorvastatin 20 Mg Tablet PO 20 mg DAILY CHRISTEL Administration Baclofen 10 mg 03/30/23 13:00 03/31/23 09:09 Baclofen 10 Mg Tablet PO 10 mg TID CHRISTEL Administration Celecoxib 200 mg 03/31/23 09:00 03/31/23 09:02 Celecoxib 200 Mg Capsule PO 200 mg DAILY CHRISTEL Administration Cilostazol 100 mg 03/30/23 17:00 03/31/23 09:03 Cilostazol 100 Mg Tablet PO 100 mg BID CHRISTEL Administration Citalopram Hydrobromide 10 mg 03/31/23 09:00 03/31/23 09:02 Citalopram Hydrobromide 10 Mg Tablet PO 10 mg DAILY CHRISTEL Administration Divalproex Sodium 125 mg 03/30/23 12:00 03/31/23 09:[address] 125 Mg Tabec PO 125 mg Q12HR CHRISTEL Administration Docusate Sodium 100 mg 03/31/23 09:00 03/31/23 09:08 Docusate Sodium 100 Mg Capsule PO 100 mg DAILY CHRISTEL Administration Ferrous Sulfate 325 mg 03/31/23 09:00 03/31/23 09:03 Ferrous Sulfate [address] PO 325 mg DAILY CHRISTEL Administration Gabapentin 300 mg 03/30/23 12:00 03/31/23 09:02 Gabapentin 300 Mg Capsule PO 300 mg Q12HR CHRISTEL Administration Ceftriaxone Sodium 1 gm in 50 mls @ 100 mls/hr 03/30/23 14:00 03/30/23 13:45 Rocephin 1 Gm/Ns 50 Ml IVPB 100 mls/hr Q24H CHIRSTEL Administration Lactulose 20 gm 03/30/23 17:00 03/31/23 09:02 Lactulose 20 Gm/30 Ml Udc PO 20 gm BID CHRISTEL Administration Lidocaine 1 patch 03/30/23 12:30 03/31/23 09:08 Lidocaine 5% Patch TOPICAL 1 patch DAILY CHRISTEL Administration Losartan Potassium 100 mg 03/31/23 09:00 03/31/23 09:02 Losartan Potassium 100 Mg Tablet PO 100 mg DAILY CHRISTEL Administration Magnesium Gluconate 13.5 mg 03/30/23 12:30 03/30/23 13:31 Magnesium 13.5 Mg Tablet (250 Mg Mag Gluconat
[2023-03-31] MEDS: MAGNESIUM 13.5 MG TABLET (250 MG MAG GLUCONATE) PO (12:13)
--- NOTE | 2023-03-31 13:02 | PCCCNOTE ---
On 03/31/23, the student, [Cheryle Taylor ], provided care and [facility] on this patient. I have reviewed the student's documentation and agree with the findings.
[2023-03-31 14:00] VITALS: BP 135/87; PULSE 86; RESP 24; TEMP 37.3; O2SAT 98
[2023-03-31 14:49] LABS: SARS-CoV-2 RNA PCR Negative (Negative)
[2023-03-31] MEDS: MELATONIN 5 MG TABLET PO (20:31)
[2023-03-31] MEDS: ACETAMINOPHEN 325 MG TABLET 650 MG PO (20:41)
[2023-03-31 22:00] VITALS: BP 123/80; PULSE 95; RESP 14; TEMP 36.1; O2SAT 96
[2023-04-01 06:00] VITALS: BP 119/75; PULSE 87; RESP 18; TEMP 36.1; O2SAT 95
[2023-04-01 07:03] LABS: Potassium 4.1 mmol/L (3.4-5.0)
[2023-04-01 08:00] VITALS: O2SAT 95
[2023-04-01] MEDS: DOCUSATE SODIUM 100 MG CAPSULE PO (08:39)
[2023-04-01] MEDS: SODIUM CHLORIDE 1 GM TABLET PO (08:40)
[2023-04-01] MEDS: LIDOCAINE 5% PATCH 1 PATCH TOPICAL (08:40)
[2023-04-01] MEDS: CITALOPRAM HYDROBROMIDE 10 MG TABLET PO (08:40)
[2023-04-01] MEDS: ASPIRIN 81 MG CHEWABLE TABLET PO (08:40)
[2023-04-01] MEDS: CELECOXIB 200 MG CAPSULE PO (08:40)
[2023-04-01] MEDS: FERROUS SULFATE 325 MG TABLET DR PO (08:40)
[2023-04-01] MEDS: cilostazoL 100 MG TABLET PO ×2 (08:40→16:52)
[2023-04-01] MEDS: ATORVASTATIN 20 MG TABLET PO (08:40)
[2023-04-01] MEDS: SPIRONOLACTONE 50 MG TABLET PO (08:40)
[2023-04-01] MEDS: MULTIVITAMINS THERAPEUTIC TAB (*BKC) 1 TABLET PO (08:40)
[2023-04-01] MEDS: GABAPENTIN 300 MG CAPSULE PO (08:40)
[2023-04-01] MEDS: CHOLECALCIFEROL 400 UNITS TABLET (VIT D) PO (08:40)
[2023-04-01] MEDS: TAMSULOSIN HCL 0.4 MG CAPSULE PO (08:40)
[2023-04-01] MEDS: SENNOSIDES 8.6 MG TABLET PO ×2 (08:40→16:51)
[2023-04-01] MEDS: BACLOFEN 10 MG TABLET PO ×3 (08:40→16:51)
[2023-04-01] MEDS: rOPINIRole HCL 1 MG TABLET PO ×3 (08:40→16:52)
[2023-04-01] MEDS: DIVALPROEX SODIUM DR 125 MG TABEC PO (08:40)
[2023-04-01] MEDS: LOSARTAN POTASSIUM 100 MG TABLET PO (08:40)
[2023-04-01] MEDS: LACTULOSE 20 GM/30 ML UDC PO ×2 (08:41→16:52)
[2023-04-01] MEDS: MAGNESIUM HYDROXIDE SUSP 30 ML UDC 5 ML PO (08:41)
--- NOTE | 2023-04-01 10:47 | PM.DS ---
DS: Admitting Diagnosis Discharge Date April 01, 2023 Admitting Diagnosis UTI DS: Discharge Diagnosis Discharge Diagnosis (1) Altered mental status: Qualifiers: Altered mental status type: delirium Qualified Code(s): R41.0 - Disorientation, unspecified Code(s): R41.82 - Altered mental status, unspecified Status: Acute Assessment and Plan: Appears to be at baseline. (2) Urinary tract infection, site not specified: Qualifiers: Hematuria presence: with hematuria Urinary tract infection type: acute cystitis Qualified Code(s): N30.01 - Acute cystitis with hematuria Code(s): N39.0 - Urinary tract infection, site not specified Status: Acute Assessment and Plan: Antibiotics. DS: Summary Hospital Course Hospital Course: Admitted for UTI and altered mental status. Now resolved. Antibiotics on discharge Time Spent with Patient Time attestation: Total time spent providing and/or coordinating discharge services: Exam Narrative: General: alert and oriented Psych: appropriate mood nad affect Eyes: PERRLA Neck: Trachea midline, no new lesions Skin: no changes Lungs: CTA Cardiac: Normal S1,S2, no MGR ABD: soft, nd, nt, nbs Ext: no new lesions, no cce Vasc: Pulses intact DS: Data Data Completed and Pending Labs on day of discharge: Labs from last 24 hours 04/01/23 03/31/23 06:04 14:06 Potassium 4.1 SARS-CoV-2 RNA (RT-PCR) Negative Discharge Plan Discharge Attending physician on discharge: Víctor Chaudhari Discharging Clinician: Víctor Chaudhari Patient Disposition: Home, Self-Care Activity: as tolerated Diet: as tolerated Patient Instructions: Antibiotic Form, Heart Failure (DC), Pain Management in Older Adults (GEN) Stand Alone Forms: General Discharge Information Follow-up/Referrals: Zenia Tolentino MD [Primary Care Provider] - Discharge Medications: New cephalexin 500 mg Capsule 500 mg PO Q6HR 5 Days Qty: 20 0RF Continued acetaminophen 500 mg tablet 500 mg PO Q6H PRN (Reason: pain) alendronate 70 mg tablet 70 mg PO WEEKLY aspirin 81 mg tablet,chewable 81 mg PO DAILY atorvastatin 20 mg tablet 20 mg PO DAILY celecoxib [Celebrex] 200 mg capsule 200 mg PO DAILY citalopram 10 mg tablet 10 mg PO DAILY docusate sodium 100 mg tablet 100 mg PO DAILY losartan 100 mg tablet 100 mg PO DAILY magnesium 250 mg tablet 250 mg PO DAILY melatonin 5 mg capsule 5 mg PO HS multivitamin Tablet 1 tablet PO DAILY ropinirole 1 mg tablet 1 mg PO TID sodium chloride 1 gram tablet 1,000 mg PO DAILY cholecalciferol (vitamin D3) 10 mcg (400 unit) tablet 10 mcg PO DAILY lidocaine 5 % adhesive patch,medicated 1 patch topical DAILY Rx Instructions: left shoulder magnesium hydroxide [Milk of Magnesia] 400 mg/5 mL suspension 5 ml PO DAILY sennosides [senna] 8.6 mg Tablet 8.6 mg PO BID nystatin-triamcinolone 100,000-0.1 unit/gram-% Ointment 100,000 applic TOPICAL DAILY Rx Instructions: apply to buttocks and groin tamsulosin 0.4 mg Capsule 0.4 mg PO DAILY ferrous sulfate 325 mg (65 mg iron) Tablet,Delayed Release (Dr/Ec) 40 mg PO DAILY spironolactone 50 mg Tablet 50 mg PO QAM lactulose 20 gram/30 mL Solution 20 g PO BID calcium-vitamin D3-vitamin K [Viactiv] 650 mg-12.5 mcg-40 mcg Tablet,Chewable 1 tablet PO DAILY gabapentin 300 mg capsule 300 mg PO BID baclofen 10 mg tablet 10 mg PO TID cilostazol 100 mg tablet 100 mg PO BID Patient Comments: ordered by VISHAL divalproex [Depakote] 125 mg tablet,delayed release (DR/EC) 125 mg PO BID Patient Comments: ordered by VISHAL Date of admission: 03/30/23 13:21 Primary Care Provider: Zenia Tolentino Admitting Provider: Víctor Chaudhari
[2023-04-01 12:21] VITALS: BP 122/68; PULSE 88; RESP 18; TEMP 36.5; O2SAT 98
[2023-04-01] MEDS: MAGNESIUM 13.5 MG TABLET (250 MG MAG GLUCONATE) PO (12:57)
[2023-04-01] MEDS: CEPHALEXIN 500 MG CAPSULE PO ×2 (12:57→16:52)
[2023-04-01 15:03] VITALS: BP 103/62; PULSE 83; RESP 16; TEMP 36.7; O2SAT 95
== END 2023-04-01 17:35 | disposition home or self-care (01) | DRG 690 ==
LOC: ANHED 15:18 → ANH3MEDSUR 16:42
PROVIDERS: General Practice; Admitting Provider Chiropractor; Emergency Provider Preventive Medicine Aerospace Medicine; PCP Family Medicine; Visit Provider Chiropractor
DX: N39.0 Urinary tract infection, site not specified (principal); E87.1 Hypo-osmolality and hyponatremia; E78.5 Hyperlipidemia, unspecified; D50.9 Iron deficiency anemia, unspecified; I10 Essential (primary) hypertension; M17.0 Bilateral primary osteoarthritis of knee; G25.81 Restless legs syndrome; F41.9 Anxiety disorder, unspecified; Z20.822 Contact with and (suspected) exposure to COVID-19; Z79.82 Long term (current) use of aspirin; Z87.891 Personal history of nicotine dependence
CPT/HCPCS: 36415; 70450; 71045; 80048; 80053; 80307; 81001; 84132; 85025; 85610; 85730; 87077; 87086; 87186; 87635; 93005; 96365; 99285; A9270; G0378; J0696

== ENCOUNTER 2023-04-02 13:37 | Inpatient (IN) | payer MEDICARE, BC, SELFPAY ==
[2023-04-02] VITALS (26 sets, daily range): BP systolic 80–150; BP diastolic 48–90; PULSE 62–97; RESP 11–23; TEMP 36.2–36.9; O2SAT 93–100; BMI 30.2
--- NOTE | ~2023-04-02 | CT_ITS ---
EXAMINATION: CT chest abdomen pelvis w con DATE: 04/02/2023 14:55 INDICATION: Altered mental status . TECHNIQUE: Computed tomography (CT) of the chest, abdomen, and pelvis was performed with 100 mL Omnip aque-350 intravenous contrast. Automated exposure control and iterative reconstruction technique were employed. The dose-length product was 1362.58 mGy-cm. COMPARISON: None FINDINGS: CHEST: Thoracic aorta: Mild arch calcification and unfolding. Lung parenchyma and airways: Lungs and airways are clear. Thoracic inlet, axillae and chest wall: Multiple thyroid nodules measuring up to 2.4 cm in the right. No axillary lymphadenopathy.. Mediastinum: No mass or lymphadenopathy. Heart and pericardium: Normal heart size. No pericardial effusion. Coronary artery calcifications: Moderate. Pleura: No effusion or mass. Thoracic bones: No acute osseous finding in the chest. ABDOMEN/PELVIS: Liver: Normal. Biliary/Gallbladder: Gallbladder is normal. No bile duct dilation. Pancreas: No mass or duct dilation. Spleen: Small cysts/hemangiomas. Adrenals:No mass. Kidneys: Multiple bilateral simple renal cysts and hypodensities that are too small to characterize b ut also most likely represent cysts. No obstructing calcification. No suspicious mass. Right parapelv ic cyst measuring 4.0 cm. GI tract: Small hiatal hernia. Antral wall edema. Single loop of dilated small bowel in the midline p josefa without obstructing mass or focal transition point. Mildly dilated rectum, with mild wall thick ening. Normal appendix. Mesentery/Peritoneum: No ascites, mass, or free air. Retroperitoneum: No mass Atherosclerotic abdominal aortic and/or arterial calcifications. Pelvis: Decompressed urinary bladder. Soft Tissues: Soft tissues and body wall unremarkable. Abdominopelvic bones: No acute osseous finding in the abdomen/pelvis. IMPRESSION: Multiple thyroid nodules measuring up to 2.4 cm, consider outpatient thyroid ultrasound for further c haracterization. Antral gastritis. Single loop of mildly dilated small bowel likely reflects mild ileus, early obstruction not excluded. Mild fecal impaction, with wall thickening that may indicate inflammation as can be seen with early s tercoral colitis. Reviewed, dictated and finalized at location [facility] IMPRESSION: Multiple thyroid nodules measuring up to 2.4 cm, consider outpatient thyroid ul trasound for further characterization. Antral gastritis. Single loop of mildly dilated small bowel likely reflects mild ileus, early obs truction not excluded. Mild fecal impaction, with wall thickening that may indicate inflammation as ca n be seen with early stercoral colitis.
--- NOTE | ~2023-04-02 | XR_ITS ---
XR chest 1V portable DATE: 04/02/2023 14:13 INDICATION: Altered mental status TECHNIQUE: Portable AP chest on 04/02/2023 at 1408 hours COMPARISON: 03/29/2023 portable AP chest FINDINGS: Cardiomegaly with left ventricular prominence. Aortic arch mild calcification. No hilar or mediastinal enlargement. No pulmonary infiltrate or consolidation, pleural effusion or pulmonary vascular congestion or pneumo thorax is detected. Diffuse osteopenia. There is some deformity at the lateral right clavicle and osteophytic change of t he right glenohumeral joint. There is old fracture deformity of the proximal left humerus. Dextroscoliosis and degenerative change of the thoracic spine. IMPRESSION: No active cardiopulmonary disease or significant change since 03/29/2023 Reviewed, dictated and finalized at location [facility]. IMPRESSION: No active cardiopulmonary disease or significant change since 2022
--- NOTE | ~2023-04-02 | CT_ITS ---
EXAMINATION: CT brain wo con DATE: 04/02/2023 14:54 INDICATION: Altered mental status . TECHNIQUE: Computed tomography (CT) of the head was performed without intravenous contrast. The mA wa s adjusted according to patient size. Iterative reconstruction technique was employed. The dose-lengt h product was 681.00 mGy-cm. COMPARISON: 03/29/2023. FINDINGS: No acute intracranial hemorrhage or extra-axial fluid collection. No hydrocephalus, mass, or herniation. No acute ischemic infarct. Unremarkable dural venous sinus attenuation. No acute osseous abnormality. Mucosal thickening in the ethmoid air cells. Trace fluid in the right mastoid air cells. The remainin g aerated spaces are clear. Moderate atrophy and chronic white matter change. Atherosclerotic intracranial calcification. Bilater al lens replacements. IMPRESSION: No acute intracranial process. Reviewed, dictated and finalized at location [facility].
--- NOTE | 2023-04-02 13:44 | ECG_ITS ---
Measurements Intervals Badin Rate: 71 P: CT: 0 QRS: 38 QRSD: 104 T: -22 QT: 366 QTc: 398 Interpretive Statements ATRIAL FIBRILLATION CONSIDER ANTERIOR INFARCT, AGE INDETERMINATE INFERIOR INFARCT, AGE INDETERMINATE BASELINE ARTIFACT- I, II, AVR ABNORMAL ECG COMPARED TO ECG 03/29/2023 11:59:07 NO SIGNIFICANT CHANGES Electronically Signed On 04-03-2023 0:08:05 CDT by Foster Peralta D.O.
--- NOTE | 2023-04-02 13:49 | ED.AMS ---
HPI - Altered Mental Status General Chief Complaint: Altered Mental Status Stated Complaint: unresponsive History of Present Illness HPI narrative: This is an 87-year-old female, recently discharged from this hospital yesterday for UTI and altered mental status, who returns by EMS for reported unresponsiveness. EMS reports they were called and notified the patient was unresponsive. On initial evaluation the patient did not respond to sternal rub. Blood pressures noted in the 70s to 80s systolic. On transfer to the EMS stretcher, the patient woke, sat forward and looked around. She is alert and oriented x2-3 at baseline. Related Data Home Medications Medication Instructions Recorded Confirmed acetaminophen 500 mg tablet 500 mg PO Q6H PRN pain 05/07/21 03/29/23 alendronate 70 mg tablet 70 mg PO WEEKLY 05/07/21 03/29/23 aspirin 81 mg chewable tablet 81 mg PO DAILY 05/07/21 03/29/23 atorvastatin 20 mg tablet 20 mg PO DAILY 05/07/21 03/29/23 celecoxib 200 mg capsule (Celebrex) 200 mg PO DAILY 05/07/21 03/29/23 cholecalciferol (vitamin D3) 10 10 mcg PO DAILY 05/07/21 03/29/23 mcg (400 unit) tablet citalopram 10 mg tablet 10 mg PO DAILY 05/07/21 03/29/23 docusate sodium 100 mg tablet 100 mg PO DAILY 05/07/21 03/29/23 losartan 100 mg tablet 100 mg PO DAILY 05/07/21 03/29/23 magnesium 250 mg tablet 250 mg PO DAILY 05/07/21 03/29/23 melatonin 5 mg capsule 5 mg PO HS 05/07/21 03/29/23 multivitamin 1 tablet PO DAILY 05/07/21 03/29/23 ropinirole 1 mg tablet 1 mg PO TID 05/07/21 03/29/23 sodium chloride 1 gram tablet 1,000 mg PO DAILY 05/07/21 03/29/23 lidocaine 5 % topical patch 1 patch topical DAILY 06/04/21 03/29/23 magnesium hydroxide 400 mg/5 mL 5 ml PO DAILY 06/04/21 03/29/23 oral suspension (Milk of Magnesia) cilostazol 100 mg tablet 100 mg PO BID 11/11/22 03/29/23 divalproex 125 mg tablet,delayed 125 mg PO BID 11/11/22 03/29/23 release (Depakote) baclofen 10 mg tablet 10 mg PO TID 03/29/23 03/29/23 calcium 650 mg-vitamin D3 12.5 1 tablet PO DAILY 03/29/23 03/29/23 mcg-vitamin K 40 mcg chewable tablet (Viactiv) ferrous sulfate 325 mg (65 mg 40 mg PO DAILY 03/29/23 03/29/23 iron) tablet,delayed release gabapentin 300 mg capsule 300 mg PO BID 03/29/23 03/29/23 lactulose 20 gram/30 mL oral 20 g PO BID 03/29/23 03/29/23 solution nystatin-triamcinolone 100,000 100,000 applic topical DAILY 03/29/23 03/29/23 unit/gram-0.1 % topical ointment sennosides 8.6 mg tablet (senna) 8.6 mg PO BID 03/29/23 03/29/23 spironolactone 50 mg tablet 50 mg PO QAM 03/29/23 03/29/23 tamsulosin 0.4 mg capsule 0.4 mg PO DAILY 03/29/23 03/29/23 Allergies Allergy/AdvReac Type Severity Reaction Status Date / Time No Known Allergies Allergy Verified 06/17/21 10:33 Review of Systems Review of Systems: Unable to obtain review of systems due to altered mental status FOR[facility]LY [facility], [facility] Past Medical History Medical History Anxiety disorder, unspecified Bilateral primary osteoarthritis of knee Constipation, unspecified Edema, unspecified High blood pressure Hyperlipidemia, unspecified Hypo-osmolality and hyponatremia Insomnia, unspecified Iron deficiency anemia, unspecified Pain in left shoulder Proximal humeral fracture Restless legs syndrome Unspecified fracture of upper end of left humerus, sequela Weakness Family History Family History Father History of cancer Social History Social History Smoking packs per day: 1.5 Smoking cigarettes per day: 30.0 Years smoked: 18 Smoking pack-years: 27.00 Smoking status: Former smoker Tobacco type: cigarettes Alcohol intake: former Drinks per week: 1 Alcohol use details: occasionally Substance use: never Lack of Transportation: No Lack of Food: Never True Current Housing: I Have Housing Concerned About Fut
[2023-04-02] MEDS: SODIUM CHLORIDE 0.9% IV 1,000 ML 999 ML IV CONT (13:59)
[2023-04-02 14:03] LABS: Basophils Percent Auto 0.4 % (0.2-1.2); Eosinophils Absolute Auto 0.3 K/mm3 (0-0.3); Eosinophils Percent Auto 3.3 % (0-4.4); Hematocrit 39.1 % (37.0-47.0); Hemoglobin 13.3 g/dL (12.0-15.0); Immature Granulocyte Absolute 0.04 K/mm3 (0.00-0.031); Immature Granulocyte Percent A 0.4 % (0-0.5); Lymphocytes Absolute Auto 1.81 K/mm3 (0.9-3.2); Lymphocytes Percent Auto 19.1 % (18.3-44.2); Mean Platelet Volume 9.2 fl (7.4-10.4); Monocytes Absolute Auto 0.9 K/mm3 (0.1-0.6); Monocytes Percent Auto 9.6 % (2.6-8.5); Neutrophils Absolute Auto 6.4 K/mm3 (1.3-6.7); Neutrophils Percent Auto 67.2 % (45.5-73.1); Platelet Count Result 181 k/mm3 (150-375); Red Blood Count 4.16 M/mm3 (4.2-5.4); Red Cell Distribution Width 13.5 % (11.5-14.5); White Blood Count 9.5 K/mm3 (4.5-10.0)
[2023-04-02 14:20] LABS: Alanine Aminotransferase 22 U/L (6-35); Albumin Level 3.7 g/dL (3.5-5.1); Alkaline Phosphatase 68 U/L (38-126); Anion Gap 8 mmol/L (8-16); Aspartate Amino Transferase 26 U/L (14-36); Bilirubin,Total 0.6 mg/dL (0.2-1.3); Blood Urea Nitrogen 26 mg/dL (7-17); Calcium 8.9 mg/dL (8.4-10.2); Carbon Dioxide 24 mmol/L (22-30); Chloride 91 mmol/L (98-107); Estimated CRCL calculation 35 ml/min; Estimated Glomerular Filt Rate 43; Glucose 123 mg/dL (65-110); Potassium 4.4 mmol/L (3.4-5.0); Sodium 123 mmol/L (137-145)
[2023-04-02 14:21] LABS: Acetaminophen < 10 ug/mL (10-30); Ethanol < 10 mg/dL (<10); Salicylate < 1.0 mg/dL (2-20)
[2023-04-02 14:31] LABS: Troponin I < 0.012 ng/mL (0.000-0.034)
[2023-04-02] MEDS: ONDANSETRON INJ 4 MG/2 ML VIAL IV PUSH (15:41)
[2023-04-02 15:53] LABS: Appearance Urine Cloudy (Clear); Bacteria Urine None Seen /hpf; Bilirubin Urine 1+ (Negative); Blood Urine Negative (Negative); Color Urine Dark Yellow (Yellow); Glucose Urine UA Negative (Negative); Ketones Urine Trace mg/dL (Negative); Leukocyte Esterase Ur Trace LEU/UL (Negative); Mucus Urine Present /lpf; Need Manual Microscopic Reviewed; Nitrate Urine Negative (Negative); Non Pathogenic Casts >20; Protein Urine 2+ mg/dL (Negative); Specific Grav Ur 1.024 (1.001-1.035); Squamous Epithelial Cell Urine None seen /hpf (Few); WBC Urine 0-5 /hpf
[2023-04-02 15:54] LABS: Add Urine Microscopic? YES
--- NOTE | 2023-04-02 22:54 | PM.IMHP ---
H&P: HPI History of Present Illness Date/Time: 04/02/23 22:54 Chief Complaint: AMS Narrative: 87-YEAR-OLD FEMALE WITH PAST MEDICAL HISTORY SIGNIFICANT FOR DYSLIPIDEMIA RESTLESS LEG SYNDROME HYPERTENSION. RECENTLY DISCHARGED 2 BETTER FOR URINARY TRACT INFECTION WAS BROUGHT TO THE EMERGENCY ROOM DUE TO EPISODE OF UNRESPONSIVENESS AT THE GROUP HOME.PATIENT APPARENTLY WOKE UP IN THE ED. PRELIMINARY WORK UP WAS ESSENTIALLY NON REVEALING EXCEPT FOR CONSTIPATION NOTED ON CT ABD/PEL AND A CREATININE OF 1.2. PATIENT IS UNABLE TO GIVE MUCH HISTORY DENIES ANY PAIN. XR chest 1V portable DATE: 04/02/2023 14:13 INDICATION: Altered mental status? TECHNIQUE: Portable AP chest on 04/02/2023 at 1408 hours? COMPARISON: 03/29/2023 portable AP chest? FINDINGS: Cardiomegaly with left ventricular prominence. Aortic arch mild calcification. No hilar or mediastinal enlargement. No pulmonary infiltrate or consolidation, pleural effusion or pulmonary vascular congestion or pneumothorax is detected. Diffuse osteopenia. There is some deformity at the lateral right clavicle and osteophytic change of the right glenohumeral joint. There is old fracture deformity of the proximal left humerus. Dextroscoliosis and degenerative change of the thoracic spine.? IMPRESSION: No active cardiopulmonary disease or significant change since 03/29/2023? EXAMINATION: CT brain wo con DATE: 04/02/2023 14:54 INDICATION: Altered mental status . TECHNIQUE: Computed tomography (CT) of the head was performed without intravenous contrast. The mA was adjusted according to patient size. Iterative reconstruction technique was employed. The dose-length product was 681.00 mGy-cm. COMPARISON: 03/29/2023. FINDINGS: No acute intracranial hemorrhage or extra-axial fluid collection. No hydrocephalus, mass, or herniation. No acute ischemic infarct. Unremarkable dural venous sinus attenuation. No acute osseous abnormality. Mucosal thickening in the ethmoid air cells. Trace fluid in the right mastoid air cells. The remaining aerated spaces are clear. Moderate atrophy and chronic white matter change. Atherosclerotic intracranial calcification. Bilateral lens replacements. IMPRESSION:? No acute intracranial process. EXAMINATION: CT chest abdomen pelvis w con DATE: 04/02/2023 14:55 INDICATION: Altered mental status . TECHNIQUE: Computed tomography (CT) of the chest, abdomen, and pelvis was performed with 100 mL Omnipaque-350 intravenous contrast. Automated exposure control and iterative reconstruction technique were employed. The dose-length product was 1362.58 mGy-cm. COMPARISON: None FINDINGS: CHEST: Thoracic aorta: Mild arch calcification and unfolding. Lung parenchyma and airways: Lungs and airways are clear. Thoracic inlet, axillae and chest wall: Multiple thyroid nodules measuring up to 2.4 cm in the right. No axillary lymphadenopathy.. Mediastinum: No mass or lymphadenopathy. Heart and pericardium: Normal heart size. No pericardial effusion. Coronary artery calcifications: Moderate. Pleura: No effusion or mass. Thoracic bones: No acute osseous finding in the chest. ABDOMEN/PELVIS: Liver: Normal.? Biliary/Gallbladder: Gallbladder is normal. No bile duct dilation. Pancreas: No mass or duct dilation. Spleen: Small cysts/hemangiomas. Adrenals:No mass. Kidneys: Multiple bilateral simple renal cysts and hypodensities that are too small to characterize but also most likely represent cysts. No obstructing calcification. No suspicious mass. Right parapelvic cyst measuring 4.0 cm. GI tract: Small hiatal hernia. Antral wall edema. Single loop of dilated small bowel in the midline pelvis without obstructing mass or focal transition point. Mildly dilated rectum, with mild wall thickening. Normal appendix. Mesentery/Peritoneum: No ascites, mass, or free air. Retroperitoneum: No mass Atherosclerotic abdominal aortic and/or arterial calcifications. Pelvis: Decompressed
[2023-04-03 01:57] VITALS: O2SAT 93
[2023-04-03 06:00] VITALS: BP 120/89; PULSE 81; RESP 18; TEMP 35.9; O2SAT 100
[2023-04-03 07:30] LABS: Basophils Percent Auto 0.4 % (0.2-1.2); Eosinophils Absolute Auto 0.4 K/mm3 (0-0.3); Hematocrit 40.4 % (37.0-47.0); Hemoglobin 13.3 g/dL (12.0-15.0); Immature Granulocyte Absolute 0.04 K/mm3 (0.00-0.031); Immature Granulocyte Percent A 0.5 % (0-0.5); Lymphocytes Absolute Auto 1.33 K/mm3 (0.9-3.2); Lymphocytes Percent Auto 16.7 % (18.3-44.2); Mean Corpuscular HGB Conc 32.9 g/dl (32-36); Mean Corpuscular Hemoglobin 31.4 pg (26-34); Mean Corpuscular Volume 95.5 fl (80-100); Mean Platelet Volume 9.6 fl (7.4-10.4); Monocytes Absolute Auto 0.8 K/mm3 (0.1-0.6); Monocytes Percent Auto 10.4 % (2.6-8.5); Neutrophils Absolute Auto 5.3 K/mm3 (1.3-6.7); Platelet Count Result 179 k/mm3 (150-375); Red Blood Count 4.23 M/mm3 (4.2-5.4); Red Cell Distribution Width 13.5 % (11.5-14.5)
[2023-04-03 07:41] LABS: Anion Gap 4 mmol/L (8-16); Blood Urea Nitrogen 14 mg/dL (7-17); Carbon Dioxide 32 mmol/L (22-30); Chloride 95 mmol/L (98-107); Estimated CRCL calculation 65 ml/min; Estimated Glomerular Filt Rate > 60; Glucose 93 mg/dL (65-110); Potassium 4.4 mmol/L (3.4-5.0); Sodium 131 mmol/L (137-145)
[2023-04-03 08:00] VITALS: BP 120/80; PULSE 94; RESP 16; TEMP 36.5; O2SAT 98
--- NOTE | 2023-04-03 08:10 | PM.IMPN ---
Progress Note: A&P Assessment and Plan (1) Altered mental status: Qualifiers: Altered mental status type: delirium Qualified Code(s): R41.0 - Disorientation, unspecified Code(s): R41.82 - Altered mental status, unspecified Status: Acute Assessment and Plan: EMS call for unresponsive patient. Patient is A&0x3 at baseline-A&O to self currently. Actively being treated for UTI was d/c'd on Keflex Will start IV Rocephin due to vomiting (2) Acute hyponatremia: Code(s): E87.1 - Hypo-osmolality and hyponatremia Status: Acute Assessment and Plan: ED note says patient was vomiting Na improved after IVF (3) KRISTINA (acute kidney injury): Code(s): N17.9 - Acute kidney failure, unspecified Status: Acute Assessment and Plan: Cr 1.2 on admission, now 0.6 after IVF Trend labs Ensure PO intake if not start fluids (4) Nausea & vomiting: Qualifiers: Vomiting type: unspecified Qualified Code(s): R11.2 - Nausea with vomiting, unspecified Code(s): R11.2 - Nausea with vomiting, unspecified Status: Acute Assessment and Plan: Non-obstructing ileus with colitis 2/2 fecal impaction Suppository this am, possible enema Plan -Suppository vs Enema -Abx for UTI - confusion could be contributed to delirium after recent hospitalization. initiate delirium precautions Subjective Date/time seen: 04/03/23 08:10 Interval history: HPI obtained from chart This is an 87-year-old female, recently discharged from this hospital yesterday for UTI and altered mental status, who returns by EMS for reported unresponsiveness.? EMS reports they were called and notified the patient was unresponsive.? On initial evaluation the patient did not respond to sternal rub.? Blood pressures noted in the 70s to 80s systolic.? On transfer to the EMS stretcher, the patient woke, sat forward and looked around.? She is alert and oriented x2-3 at baseline. 04/03: Patient is alert and oriented to self only. She tells me that she lives alone at home. I asked her who called EMS and she said my son . Patient actually lives in long-term care facility and staff called about her somnolence. She does not know where she is, she told me the year was 01/21/2023, and she thinks it is the end of July about to be [place]. She denies headache, dizziness, shortness of breath, chest pain, abdominal pain, nausea, vomiting, diarrhea. She complains of bilateral lower extremity joint pain. Her bilateral lower extremities are both moderately contracted. Overnight she required oxygen at 2 L nasal cannula. Today she is on room air satting 98%. Her sodium was low on admission at 1:23 a.m.. After initiation of IV fluids she is improved to 131. UA is showing resolution. CT abdomen and pelvis shows mild fecal impaction with bowel wall thickening indicating inflammation. Review of Systems Review of Systems: ROS unobtainable: Yes unobtainable due to mental status Exam Narrative: General: well-nourished, well-appearing 87-year-old female, sitting up in bed, comfortable, NARD Neuro: awake, alert and oriented x4, speech clear, no focal neuro deficits noted HEENMT: normocephalic, atraumatic, EOMI, sclerae anicteric, moist oral mucosa Respiratory: Clear to auscultation bilaterally without crackles, rhonchi or wheezes, nonlabored breathing Cardio: regular rate, regular rhythm with S1-S2 Abdomen: nondistended, normoactive bowel sounds, soft, nontender to palpation Extremities: no edema, erythema, or tenderness to palpation, DP pulses 2+ bilaterally Skin: no rashes or lesions, warm and dry Psych: appropriate mood and affect, judgment and insight intact Objective Data Vital Signs Vital Signs: Vital Signs - 24 hr 04/02/23 13:31 04/02/23 13:42 04/02/23 13:53 Temperature 98.1 F 97.1 F L Pulse Rate 74 74 Respiratory Rate 20 16 Blood Pressure Puls
[2023-04-03] MEDS: ENOXAPARIN 40 MG/0.4 ML SYRINGE SUB-Q (10:25)
[2023-04-03] MEDS: LACTULOSE 20 GM/30 ML UDC PO ×2 (10:26→17:57)
[2023-04-03] MEDS: BISACODYL 10 MG SUPPOSITORY RECTAL (10:29)
[2023-04-03] MEDS: CHOLECALCIFEROL 400 UNITS TABLET (VIT D) PO (10:29)
[2023-04-03] MEDS: MAGNESIUM OXIDE 200 MG TABLET PO (10:29)
[2023-04-03] MEDS: CITALOPRAM HYDROBROMIDE 10 MG TABLET PO (10:29)
[2023-04-03] MEDS: FERROUS SULFATE 325 MG TABLET DR PO (10:29)
[2023-04-03] MEDS: DIVALPROEX SODIUM DR 125 MG TABEC PO ×2 (10:29→17:57)
[2023-04-03] MEDS: CELECOXIB 200 MG CAPSULE PO (10:30)
[2023-04-03] MEDS: SENNOSIDES 8.6 MG TABLET PO ×2 (10:31→17:58)
[2023-04-03] MEDS: rOPINIRole HCL 1 MG TABLET PO ×3 (10:31→17:57)
[2023-04-03] MEDS: LOSARTAN POTASSIUM 100 MG TABLET PO (10:31)
[2023-04-03] MEDS: ATORVASTATIN 20 MG TABLET PO (10:31)
[2023-04-03] MEDS: BACLOFEN 10 MG TABLET PO ×3 (10:31→17:57)
[2023-04-03] MEDS: SPIRONOLACTONE 50 MG TABLET PO (10:31)
[2023-04-03] MEDS: MULTIVITAMINS THERAPEUTIC TAB (*BKC) 1 TABLET PO (10:31)
[2023-04-03] MEDS: TAMSULOSIN HCL 0.4 MG CAPSULE PO (10:31)
[2023-04-03] MEDS: SODIUM CHLORIDE 1 GM TABLET PO (10:31)
[2023-04-03] MEDS: ASPIRIN 81 MG CHEWABLE TABLET PO (10:32)
[2023-04-03] MEDS: cilostazoL 100 MG TABLET PO ×2 (10:32→17:57)
[2023-04-03] MEDS: SACCHAROMYCES BOULARDII 250 MG CAPSULE PO ×2 (10:32→17:58)
[2023-04-03] MEDS: DOCUSATE SODIUM 100 MG CAPSULE PO (10:32)
[2023-04-03] MEDS: TRIAMCINOLONE ACET 0.1% CREAM 15 GM TUBE 1 APPLIC TOPICAL (10:33)
[2023-04-03] MEDS: GABAPENTIN 300 MG CAPSULE PO ×2 (10:33→17:57)
[2023-04-03 14:45] VITALS: BP 128/58; PULSE 56; RESP 16; TEMP 36.6; O2SAT 98
[2023-04-03] MEDS: MELATONIN 5 MG TABLET 10 MG PO (21:00)
--- NOTE | 2023-04-03 22:34 | PC.NURSE ---
pt and belongings moved from room 307 to room 305 at 22:30
[2023-04-03 23:40] VITALS: BP 125/57; PULSE 91; RESP 13; TEMP 36.6; O2SAT 97
[2023-04-04 06:03] VITALS: BP 137/57; PULSE 81; RESP 12; TEMP 36.1; O2SAT 95
--- NOTE | 2023-04-04 07:24 | PM.IMPN ---
Progress Note: A&P Assessment and Plan (1) Altered mental status: Qualifiers: Altered mental status type: delirium Qualified Code(s): R41.0 - Disorientation, unspecified Code(s): R41.82 - Altered mental status, unspecified Status: Acute Assessment and Plan: Likely secondary to encephalopathy. Baseline orientation is a and O times 2-3 (2) Acute hyponatremia: Code(s): E87.1 - Hypo-osmolality and hyponatremia Status: Acute Assessment and Plan: IV fluids (3) KRISTINA (acute kidney injury): Code(s): N17.9 - Acute kidney failure, unspecified Status: Acute Assessment and Plan: Likely pre renal improved after IV fluids (4) Nausea & vomiting: Qualifiers: Vomiting type: unspecified Qualified Code(s): R11.2 - Nausea with vomiting, unspecified Code(s): R11.2 - Nausea with vomiting, unspecified Status: Acute Assessment and Plan: found to have large amount of stool retained bowel regimen trial of clear liquids without n/v, advanced to heart healthy diet (5) Neuropathy: Code(s): G62.9 - Polyneuropathy, unspecified Status: Acute Assessment and Plan: continue home meds (6) Restless legs syndrome: Code(s): G25.81 - Restless legs syndrome Status: Acute Assessment and Plan: continue home meds (7) Spinal stenosis, lumbar region without neurogenic claudication: Code(s): M48.061 - Spinal stenosis, lumbar region without neurogenic claudication Status: Acute Assessment and Plan: unchanged Plan assess orientation and if improved the patient could discharge back to facility today with discharge with 3 more days of Keflex Subjective Date/time seen: 04/04/23 07:24 Interval history: HPI obtained from chart This is an 87-year-old female, recently discharged from this hospital yesterday for UTI and altered mental status, who returns by EMS for reported unresponsiveness.? EMS reports they were called and notified the patient was unresponsive.? On initial evaluation the patient did not respond to sternal rub.? Blood pressures noted in the 70s to 80s systolic.? On transfer to the EMS stretcher, the patient woke, sat forward and looked around.? She is alert and oriented x2-3 at baseline. 04/03: Patient is alert and oriented to self only. She tells me that she lives alone at home. I asked her who called EMS and she said my son . Patient actually lives in long-term care facility and staff called about her somnolence. She does not know where she is, she told me the year was 01/21/2023, and she thinks it is the end of July about to be [place]. She denies headache, dizziness, shortness of breath, chest pain, abdominal pain, nausea, vomiting, diarrhea. She complains of bilateral lower extremity joint pain. Her bilateral lower extremities are both moderately contracted. Overnight she required oxygen at 2 L nasal cannula. Today she is on room air satting 98%. Her sodium was low on admission at 1:23 a.m.. After initiation of IV fluids she is improved to 131. UA is showing resolution. CT abdomen and pelvis shows mild fecal impaction with bowel wall thickening indicating inflammation. Review of Systems Review of Systems: ROS unobtainable: Yes unobtainable due to mental status Exam Narrative: General: well-nourished, well-appearing 87-year-old female, sitting up in bed, comfortable, NARD Neuro: awake, alert and oriented x4, speech clear, no focal neuro deficits noted HEENMT: normocephalic, atraumatic, EOMI, sclerae anicteric, moist oral mucosa Respiratory: Clear to auscultation bilaterally without crackles, rhonchi or wheezes, nonlabored breathing Cardio: regular rate, regular rhythm with S1-S2 Abdomen: nondistended, normoactive bowel sounds, soft, nontender to palpation Extremities: no edema, erythema, or tenderness to palpation, DP pulses 2+ bilaterally Skin: no rashes
[2023-04-04 08:00] VITALS: BP 111/57; PULSE 74; RESP 13; TEMP 36.4; O2SAT 94
[2023-04-04 08:09] LABS: Hematocrit 38.7 % (37.0-47.0); Hemoglobin 12.8 g/dL (12.0-15.0); Mean Corpuscular HGB Conc 33.1 g/dl (32-36); Mean Corpuscular Volume 96.8 fl (80-100); Mean Platelet Volume 9.3 fl (7.4-10.4); Platelet Count Result 163 k/mm3 (150-375); Red Cell Distribution Width 13.6 % (11.5-14.5); White Blood Count 7.7 K/mm3 (4.5-10.0)
[2023-04-04 08:18] LABS: Anion Gap 3 mmol/L (8-16); Blood Urea Nitrogen 12 mg/dL (7-17); Calcium 9.2 mg/dL (8.4-10.2); Carbon Dioxide 33 mmol/L (22-30); Chloride 94 mmol/L (98-107); Estimated CRCL calculation 65 ml/min; Estimated Glomerular Filt Rate > 60; Glucose 94 mg/dL (65-110); Potassium 4.5 mmol/L (3.4-5.0); Sodium 130 mmol/L (137-145)
[2023-04-04] MEDS: ENOXAPARIN 40 MG/0.4 ML SYRINGE SUB-Q (10:20)
[2023-04-04] MEDS: LACTULOSE 20 GM/30 ML UDC PO ×2 (10:20→17:25)
[2023-04-04] MEDS: TRIAMCINOLONE ACET 0.1% CREAM 15 GM TUBE 1 APPLIC TOPICAL (10:22)
[2023-04-04] MEDS: ATORVASTATIN 20 MG TABLET PO (10:24)
[2023-04-04] MEDS: FERROUS SULFATE 325 MG TABLET DR PO (10:24)
[2023-04-04] MEDS: GABAPENTIN 300 MG CAPSULE PO ×2 (10:24→17:26)
[2023-04-04] MEDS: cilostazoL 100 MG TABLET PO ×2 (10:24→17:25)
[2023-04-04] MEDS: ASPIRIN 81 MG CHEWABLE TABLET PO (10:24)
[2023-04-04] MEDS: SACCHAROMYCES BOULARDII 250 MG CAPSULE PO ×2 (10:25→17:25)
[2023-04-04] MEDS: SPIRONOLACTONE 50 MG TABLET PO (10:25)
[2023-04-04] MEDS: CITALOPRAM HYDROBROMIDE 10 MG TABLET PO (10:25)
[2023-04-04] MEDS: TAMSULOSIN HCL 0.4 MG CAPSULE PO (10:25)
[2023-04-04] MEDS: CELECOXIB 200 MG CAPSULE PO (10:25)
[2023-04-04] MEDS: rOPINIRole HCL 1 MG TABLET PO ×3 (10:25→17:26)
[2023-04-04] MEDS: MULTIVITAMINS THERAPEUTIC TAB (*BKC) 1 TABLET PO (10:25)
[2023-04-04] MEDS: BACLOFEN 10 MG TABLET PO ×3 (10:25→17:27)
[2023-04-04] MEDS: DIVALPROEX SODIUM DR 125 MG TABEC PO (10:25)
[2023-04-04] MEDS: LOSARTAN POTASSIUM 100 MG TABLET PO (10:25)
[2023-04-04] MEDS: DOCUSATE SODIUM 100 MG CAPSULE PO (10:25)
[2023-04-04] MEDS: MAGNESIUM OXIDE 200 MG TABLET PO (10:26)
[2023-04-04] MEDS: SODIUM CHLORIDE 1 GM TABLET PO (10:26)
[2023-04-04] MEDS: CHOLECALCIFEROL 400 UNITS TABLET (VIT D) PO (10:26)
[2023-04-04] MEDS: SENNOSIDES 8.6 MG TABLET PO ×2 (10:26→17:28)
--- NOTE | 2023-04-04 15:51 | PM.DS ---
DS: Admitting Diagnosis Discharge Date April 04 Admitting Diagnosis KRISTINA DS: Discharge Diagnosis Discharge Diagnosis (1) Altered mental status: Qualifiers: Altered mental status type: delirium Qualified Code(s): R41.0 - Disorientation, unspecified Code(s): R41.82 - Altered mental status, unspecified Status: Acute (2) Acute hyponatremia: Code(s): E87.1 - Hypo-osmolality and hyponatremia Status: Acute (3) KRISTINA (acute kidney injury): Code(s): N17.9 - Acute kidney failure, unspecified Status: Acute (4) Nausea & vomiting: Qualifiers: Vomiting type: unspecified Qualified Code(s): R11.2 - Nausea with vomiting, unspecified Code(s): R11.2 - Nausea with vomiting, unspecified Status: Acute (5) Neuropathy: Code(s): G62.9 - Polyneuropathy, unspecified Status: Acute (6) Restless legs syndrome: Code(s): G25.81 - Restless legs syndrome Status: Acute (7) Spinal stenosis, lumbar region without neurogenic claudication: Code(s): M48.061 - Spinal stenosis, lumbar region without neurogenic claudication Status: Acute Plan Assessment and Plan (1) Altered mental status: ?Qualifiers: ?Altered mental status type:?delirium? Qualified Code(s):?R41.0 - Disorientation, unspecified ?Code(s): R41.82 - Altered mental status, unspecified ?Status:?Acute ?Assessment and Plan: Likely secondary to encephalopathy. Baseline orientation is a and O times 2-3 (2) Acute hyponatremia: ?Code(s): E87.1 - Hypo-osmolality and hyponatremia ?Status:?Acute ?Assessment and Plan: IV fluids (3) KRISTINA (acute kidney injury): ?Code(s): N17.9 - Acute kidney failure, unspecified ?Status:?Acute ?Assessment and Plan: Likely pre renal ?improved after IV fluids (4) Nausea & vomiting: ?Qualifiers: ?Vomiting type:?unspecified? Qualified Code(s):?R11.2 - Nausea with vomiting, unspecified ?Code(s): R11.2 - Nausea with vomiting, unspecified ?Status:?Acute ?Assessment and Plan: found to have large amount of stool retained bowel regimen trial of clear liquids without n/v, advanced to heart healthy diet (5) Neuropathy: ?Code(s): G62.9 - Polyneuropathy, unspecified ?Status:?Acute ?Assessment and Plan: continue home meds (6) Restless legs syndrome: ?Code(s): G25.81 - Restless legs syndrome ?Status:?Acute ?Assessment and Plan: continue home meds (7) Spinal stenosis, lumbar region without neurogenic claudication: ?Code(s): M48.061 - Spinal stenosis, lumbar region without neurogenic claudication ?Status:?Acute ?Assessment and Plan: unchanged Plan ?assess orientation and if improved the patient could discharge back to facility today ?with discharge with 3 more days of Keflex DS: Summary Hospital Course Hospital Course: Interval history: HPI obtained from chart This is an 87-year-old female, recently discharged from this hospital yesterday for UTI and altered mental status, who returns by EMS for reported unresponsiveness.? EMS reports they were called and notified the patient was unresponsive.? On initial evaluation the patient did not respond to sternal rub.? Blood pressures noted in the 70s to 80s systolic.? On transfer to the EMS stretcher, the patient woke, sat forward and looked around.? She is alert and oriented x2-3 at baseline per chart review. 04/03:? Patient is alert and oriented to self only.? She tells me that she lives alone at home.? I asked her who called EMS and she said my son .? Patient actually lives in? long-term care facility and staff called about her somnolence.? She does not know where she is, she told me the year was 01/21/2023, and she thinks it is the end of July about to be [place]. ? She denies headache, dizziness, shortness of breath, chest pain, abdominal pain, nausea, vomiting, diarrhea.? Sh
[2023-04-04 15:56] VITALS: BP 113/53; PULSE 55; RESP 14; TEMP 36.6; O2SAT 96
[2023-04-04 18:34] LABS: SARS-CoV-2 RNA PCR Negative (Negative)
== END 2023-04-04 19:50 | DRG 683 ==
LOC: ANHED 16:15 → ANH3MEDSUR 16:52
PROVIDERS: Admitting Provider Internal Medicine; Emergency Provider Preventive Medicine Aerospace Medicine; PCP Family Medicine; Visit Provider Nurse Practitioner Acute Care
DX: N17.9 Acute kidney failure, unspecified (principal); E87.1 Hypo-osmolality and hyponatremia; G93.40 Encephalopathy, unspecified; K56.7 Ileus, unspecified; N39.0 Urinary tract infection, site not specified; K52.89 Other specified noninfective gastroenteritis and colitis; K56.41 Fecal impaction; E86.0 Dehydration; G62.9 Polyneuropathy, unspecified; G25.81 Restless legs syndrome; M48.061 Spinal stenosis, lumbar region without neurogenic claudication; Z20.822 Contact with and (suspected) exposure to COVID-19; F41.9 Anxiety disorder, unspecified; M17.0 Bilateral primary osteoarthritis of knee; E78.5 Hyperlipidemia, unspecified; D50.9 Iron deficiency anemia, unspecified; Z87.891 Personal history of nicotine dependence; Z79.82 Long term (current) use of aspirin
CPT/HCPCS: 36415; 70450; 71045; 71260; 74177; 80048; 80053; 80307; 81001; 83735; 84484; 85025; 85027; 87040; 87635; 93005; 96361; 96365; 96372; 96375; 99285; A9270; G0378; J0696; J1650; J2405; J7030; Q9967